=== PATIENT | male | born 1940 | race Caucasian/White ===

== ENCOUNTER 2017-10-19 00:13 | Inpatient (IN) | payer MEDICARE, OTHER ==
[2017-10-19] MEDS ORDERED: Morphine 2 MG/ML SYRINGE ONE (00:25)
[2017-10-19] MEDS ORDERED: Ondansetron HCl/PF 4 MG/2 ML Vial ONE ×2 (00:29→07:07)
[2017-10-19] MEDS ORDERED: Multivitamins, Adult 10 ML, Thiamine HCl 100 MG, Folic Acid 1 MG in Dextrose 5 %-0.45 %... IV SCH ×4 (00:45)
[2017-10-19] MEDS ORDERED: Cyclobenzaprine 10 MG TAB PO PRN (02:08)
[2017-10-19] MEDS ORDERED: Dextrose 50% Abboject 50 ML SYRINGE SLOW IVP PRN (02:08)
[2017-10-19] MEDS ORDERED: Ondansetron HCl/PF 4 MG/2 ML Vial IVP PRN ×3 (02:08→13:10)
[2017-10-19] MEDS ORDERED: Dextrose 5% in Water 1,000 ML IV PRN (02:08)
[2017-10-19] MEDS ORDERED: hydrALAZINE 20 MG/ML VIAL SLOW IVP PRN (02:08)
[2017-10-19] MEDS ORDERED: Morphine 2 MG/ML SYRINGE IVP PRN (02:08)
[2017-10-19] MEDS ORDERED: Acetaminophen 1,000 MG in Premix Bag 1 BAG IVPB SCH (02:08)
[2017-10-19] MEDS ORDERED: Ketorolac Tromethamine 30 MG/ML VIAL IVP SCH (02:08)
[2017-10-19] MEDS ORDERED: Ondansetron ODT 4 MG TAB SL PRN (02:08)
[2017-10-19] MEDS ORDERED: Ondansetron ODT 4 MG TAB PO PRN (02:08)
[2017-10-19] MEDS ORDERED: D5 1/2 NS w/20 mEq KCL 1,000 ML IV SCH (02:15)
[2017-10-19] MEDS: Sodium Chloride 0.9% 1,000 ML IV SCH ×3 (02:31→23:30)
[2017-10-19 02:45] VITALS: BMI 16.9
--- NOTE | 2017-10-19 03:01 | HP ---
DATE OF ADMISSION: 10/19/2017 REQUESTING PHYSICIAN: Dr. Castro. ATTENDING SURGEON: Dr. Agosto. CONSULTATIONS: Neurosurgery, Dr. Lomax; orthopedics, Dr. Avelar. HISTORY OF PRESENT ILLNESS: Patient is a 77-year-old man who was reportedly consuming alcohol and was walking to a friend's truck when he fell, landing on his left side. Patient had immediate pain to his neck and left hip. He was taken by EMS to the emergency department in [facility], where he underwent evaluation and examination was noted to have a type 2 C2 odontoid fracture and a left femoral neck fracture, at which time he was transferred to our facility for evaluation, admission for his orthopedic and neurosurgical problems. Of note, [facility] and they were contacted [facility] and they denied the transfer, so he was transferred to us. Patient denies chest pain, shortness of breath, dizziness or any syncopal symptoms. ALLERGIES: None. CURRENT MEDICATIONS: Patient states that he is on a medication for something, but is unsure of why he takes it or what it is for. PAST MEDICAL HISTORY: Hypertension and severe vision loss due to cataracts. PAST SURGICAL HISTORY: Cataract surgery, appendectomy. FAMILY MEDICAL HISTORY: Hypertension. SOCIAL HISTORY: Patient drinks what he reports is 3-4 beers per day, smokes approximately 1 pack of cigarettes per day. Denies drug use. Patient is a retired anderson. REVIEW OF SYSTEMS: Ten-point review of systems negative, unless otherwise stated. PHYSICAL EXAMINATION: VITAL SIGNS: Blood pressure 125/70, heart rate 84, respirations 16, oxygen saturation is 97% on room air, temperature is 97.9. GENERAL: Patient is lying comfortably in the ER bed. He is awake, alert, and oriented x3. Rain coma scale is 15. HEENT: Head is normocephalic, atraumatic. Eyes: Pupils are sluggish, unable to evaluate extraocular motion due to the patient's severe vision loss, which does not allow him to track my finger. Ears are atraumatic without discharge. Nose is atraumatic without discharge. Oropharynx is clear. NECK: Immobilized and in an [place] collar. Trachea is midline. No JVD. CHEST: Chest shows scant rhonchi with moderate inspiratory and expiratory effort. HEART: Regular rate and rhythm. ABDOMEN: Soft, flat, nontender with active bowel sounds. Pelvis is stable with tenderness to palpation to the left hip consistent with his fracture. EXTREMITIES: Neurovascularly intact x4. BACK: Atraumatic and nontender. LABORATORY DATA: White blood cell count 12.8, hemoglobin 14.6, hematocrit 42.7 , platelets 159. Sodium 129, potassium 4.2, chloride 98, CO2 of 20, BUN 15, creatinine 1.08, glucose 89. LFTs are unremarkable. CK 216, CK-MB 2.0, troponin less than 0.010. Urine drug screen is unremarkable. Blood alcohol 154. INR 1.0. RADIOGRAPHIC REPORTS: AP chest x-ray shows no acute cardiopulmonary process. Two views of the left hip show mildly displaced and angulated left subcapital femoral neck fracture. CT of the C-spine without contrast shows a nondisplaced type 2 odontoid fracture and prominent multilevel degenerative changes. CT of the brain without contrast shows no acute intracranial abnormalities and multiple chronic changes. ASSESSMENT AND PLAN: 1. Status post ground level fall. 2. Type 2 odontoid fracture. 3. Left femoral neck fracture. 4. Hyponatremia. 5. Alcohol intoxication. PLAN: We will be to admit the patient to the surgical floor, make the patient n.p.o., IV hydration, pain control, pulmonary toilet, gastritis, and mechanical DVT prophylaxis. The patient will remain in an [place] collar per Neurosurgery's recommendations and will undergo orthopedic surgical intervention for his hip fracture, later today. The evaluation, examination, laboratory and radiographic findings will be discussed with Dr. Agosto after this dictation. [facility]
[2017-10-19 05:13] LABS: #Eosinphils 0.2 thou/uL (0.0-0.7); #Lymphocytes 1.9 thou/uL (1.20-3.40); #Monocytes 0.9 thou/uL (0.11-0.59); #Neutrophils 9.2 thou/uL (1.40-6.50); %Basophils 0.1 % (0.0-1.0); %Eosinophils 1.7 % (0.0-10.0); %Lymphocytes 15.7 % (21.0-51.0); %Monocytes 7.5 % (0.0-10.0); %Neutrophils 75.1 % (42.0-75.0); Hemoglobin 14.4 g/dL (14.0-18.0); Mean Corpuscular HGB CONC 34.1 g/dL (32.0-36.0); Mean Corpuscular Hemoglobin 32.1 pg (27.0-31.0); Mean Corpuscular Volume 94.2 fl (80.0-94.0); Mean Platelet Volume 7.6 fL (7.4-10.4); Platelet Count 162 thou/uL (130-400); RBC Distribution Width 12.7 % (11.5-14.5); Red Blood Cell (RBC) Count 4.47 mill/uL (4.70-6.10); White Blood Cell (WBC) Count 12.3 thou/uL (4.8-10.8)
[2017-10-19 05:29] LABS: Anion Gap 10 mmol/L (10-20); BUN (Urea Nitrogen) 13 mg/dL (8.4-25.7); Calc. Creatinine Clearance 51 mL/min (70-130); Calcium 8.3 mg/dL (7.8-10.44); Carbon Dioxide 23 mmol/L (23-31); Chloride 99 mmol/L (98-107); Estimated GFR-MDRD 75; Glucose 92 mg/dL (83-110); Magnesium 2.1 mg/dL (1.6-2.6); Phosphorus 2.7 mg/dL (2.3-4.7); Potassium 4.5 mmol/L (3.5-5.1); Sodium 127 mmol/L (136-145)
[2017-10-19] MEDS: Acetaminophen 1,000 MG in Premix Bag 1 BAG IVPB SCH ×3 (05:36→18:00)
[2017-10-19] MEDS: Ketorolac Tromethamine 30 MG/ML VIAL IVP SCH ×3 (05:38→18:00)
[2017-10-19] MEDS ORDERED: ePHEDrine/0.9% NaCl/PF SYRINGE 50 mg/10 ml ONE (07:07)
[2017-10-19] MEDS ORDERED: Succinylcholine Chloride 20 MG/ML 10 ml SYRINGE FS ONE (07:07)
[2017-10-19] MEDS ORDERED: Lidocaine 1% PF 5 ML VIAL ONE (07:07)
[2017-10-19] MEDS ORDERED: Ketorolac Tromethamine 30 MG/ML VIAL ONE (07:07)
[2017-10-19] MEDS ORDERED: Glycopyrrolate 0.2 MG/ML 5 ML SYRINGE ONE (07:07)
[2017-10-19] MEDS ORDERED: CEFAZOLIN/Water 2 GM/20 ML SYRINGE SLOW IVP SCH ×2 (08:30→18:00)
[2017-10-19] MEDS ORDERED: Prevnar 13-Val Conj/PF 0.5 ML SYRINGE IM ONE (09:00)
--- NOTE | 2017-10-19 10:03 | CON ---
DATE OF CONSULTATION: 10/19/2017 REQUESTING PHYSICIAN: Dr. Agosto. CONSULTING PHYSICIAN: Dr. Ricky Avelar. BRIEF HISTORY: This is a 77-year-old male, who fell yesterday when he was consuming alcoho l and was walking to a friend's truck and stumbled. The patient was found to have a type 2 C2 odonto id fracture as well as a left femoral neck fracture. He is being seen by Neurosurgery for the C2 fra cture. We have been consulted for the left hip fracture. The patient denies any significant pain at this time. He denies any other orthopedic injuries. He has been admitted to the Trauma Service and is n.p.o. at this time in preparation for surgery today. ALLERGIES: None. CURRENT MEDICATIONS: Patient states he was prescribed something from [place], but does not know the name of the medication. PAST MEDICAL HISTORY: Cataracts and hypertension. PAST SURGICAL HISTORY: Appendectomy and cataracts. SOCIAL HISTORY: Patient states that he drinks approximately 4-6 beers a day, smokes approximately 1- pack of cigarettes a day. Denies illicit drug use. PHYSICAL EXAMINATION: VITAL SIGNS: Temperature of 98.0, pulse of 86, respirations of 18, blood pressure of 153/88. GENERAL: The patient is awake and alert. He is oriented x3. He is in no acute distress. He is lyi ng supine on the hospital bed on tower 3. HEENT: Normocephalic, atraumatic. NECK: Immobilized in an [place] collar. CHEST: Shows nonlabored breathing. EXTREMITIES: Examination of the left hip shows mild tenderness to palpation along the left hip consi stent with his fracture. His leg does appear shortened and slightly externally rotated. Distal neur ovascular status is intact. Distal pulses 2+. IMAGING: Radiographic studies of the left hip including 2 views from [facility] show evidence of a mildly displaced and angulated left subcapital femoral neck fracture. ASSESSMENT AND PLAN: Left femoral neck fracture. The patient will be taken to surgery today with Dr Chad Avelar for a left hip hemiarthroplasty. Risks, benefits, and alternatives of surgery were discu ssed at length with the patient today. He verbalized understanding. Patient is already n.p.o. We w ill consent for surgery. We will continue adequate pain control and deep vein thrombosis prophylaxis per trauma team.
[2017-10-19] MEDS ORDERED: CEFAZOLIN/Water 2 GM/20 ML SYRINGE ONE (10:12)
[2017-10-19] MEDS: Folic Acid 1 MG TAB PO SCH (10:53)
[2017-10-19] MEDS: Famotidine 20 MG TAB PO SCH ×2 (10:53→20:56)
[2017-10-19] MEDS: Multivit, Therapeutic 1 TAB PO SCH (10:53)
[2017-10-19] MEDS: Oxazepam 10 MG CAP PO SCH ×2 (10:53→16:43)
[2017-10-19] MEDS ORDERED: Neomycin-Polymyxin 1 ML AMP ONE (11:21)
[2017-10-19] MEDS ORDERED: Fentanyl 250 MCG/5 ML VIAL ONE (11:23)
[2017-10-19] MEDS ORDERED: Midazolam HCl 2 mg/2 ml Vial ONE (11:24)
[2017-10-19] MEDS ORDERED: HYDROmorphone 0.5 MG/0.5 ML SYRINGE ONE (12:30)
[2017-10-19] MEDS ORDERED: Promethazine HCl 25 MG/ML VIAL SLOW IVP PRN (13:10)
[2017-10-19] MEDS ORDERED: Promethazine HCl 25 MG/ML VIAL IM PRN (13:10)
--- NOTE | 2017-10-19 13:58 | RAD ---
RADIOGRAPH PELVIS 1 VIEW: HISTORY: A 77-year-old male status post hemiarthroplasty of left hip. COMPARISON: Left hip radiograph of 10/18/17. FINDINGS: The left femoral head and neck have been surgically resected during the interval, and replaced with m etallic hardware, with distal portion of femoral stem outside of the field of view. There are new le ft lateral skin rohan and left lateral soft tissue swelling with subcutaneous emphysema indicating very recent postsurgical status. The rest of the pelvis appears to be intact. IMPRESSION: Immediately status post left hip replacement arthroplasty. POS: [facility]
--- NOTE | 2017-10-19 14:40 | CON ---
DATE OF CONSULTATION: 10/19/2017 ATTENDING PHYSICIAN: Dr. Florin Lomax. HISTORY OF PRESENT ILLNESS: The patient is a 77-year-old male with a past medical history of hypertension, who presented to the emergency department last night after a mechanical fall while simona sanhcez was walking to his friend's truck. The patient does admit to ETOH use at this time. He was taken to the emergency department by EMS where he was evaluated with CT of the head and neck, which was not able for a type 2 odontoid fracture, which is nondisplaced. The patient was also found to have a lef t femoral neck fracture. He was admitted to the Trauma Service and Orthopedics was also consulted. I am seeing the patient at the bedside in his room. He does have pain to the left lower extremity at the location of the fracture, but denies any other radicular leg pain or extremity pain, numbness, t ingling, or weakness. He does complain of some neck discomfort. He is currently wearing an [place] co llar. PAST MEDICAL HISTORY: Hypertension and cataracts with chronic vision loss. PAST SURGICAL HISTORY: Cataract surgery and appendectomy. ALLERGIES: Patient has no known drug allergies. SOCIAL HISTORY: The patient drinks approximately 3-4 beers per day. He smokes 1-pack cigarettes per day. He denies any drug use. He is a retired anderson. REVIEW OF SYSTEMS: Per HPI. PHYSICAL EXAMINATION: VITAL SIGNS: Temperature 97.8, heart rate 73, respirations rate 18. The patient is 97% on room air, blood pressure 119/74. On exam, patient has a GCS of 15. GENERAL: He is comfortable, in no acute distress. HEENT: Normocephalic, atraumatic. EYES: PERRLA. Extraocular movements are intact. Sclerae white. ENT: Oral mucosa is pink, intact, moist. Patient has normal voice. NECK: Patient is currently immobilized in an [place] collar. CARDIOVASCULAR: Regular rate and rhythm. RESPIRATORY: The patient has symmetric chest expansion. He is breathing comfortable. MUSCULOSKELETAL: The patient has pain over the left hip and in the left lower extremity. NEUROLOGIC: A and O x4. GCS 15. No focal motor neurologic deficits are appreciated. ASSESSMENT AND PLAN: Neurosurgery service was consulted for acute onset C2 odontoid fracture after m echanical fall. This appears to be nondisplaced and he has been placed in an [place] collar. We will recommend that he wear the [place] collar at all times and he will be provided a [place] collar fo r showering. We will plan to follow up with the patient in 4 weeks for repeat set of x-rays. Please reach out to the Neurosurgery Service for additional questions or concerns.
--- NOTE | 2017-10-19 15:09 | RAD ---
SINGLE LATERAL LEFT HIP: Indication: Hemiarthroplasty. Comparison: 10-18-17 FINDINGS: There is a new left hip endoprosthesis is in place. The prosthetic component projects in the expected position. IMPRESSION: Post-operative left hip. POS: [facility]
--- NOTE | 2017-10-19 15:38 | OP ---
DATE OF PROCEDURE: 10/19/2017 OPERATION: Left hip hemiarthroplasty, bipolar. PREOPERATIVE DIAGNOSIS: Left femoral neck fracture. POSTOPERATIVE DIAGNOSIS: Left femoral neck fracture. COMPLICATIONS: None. ESTIMATED BLOOD LOSS: 100 mL. SURGEON: Ricky Avelar M.D. SENIOR SQL DATABASE DEVELOPER: Karis Lantigua PA-C IMPLANTS: DePuy basic press-fit stem size 6 [place], size 52 bipolar shell with a +5 femoral head. INDICATIONS: Mr. Jones is a 77-year-old male who fell. He fractured the left femoral neck. He was indicated for hemiarthroplasty of the hip to restore alignment and promote healing. Goal of surgery is to promote early mobilization and prevent complications of prolonged bed rest. He is aware of ri sks which include wound complication, infection, dislocation, nerve or vascular injury, DVT, PE, and others. DESCRIPTION OF PROCEDURE: Mr. Jones was identified in the preoperative holding area. His correct e xtremity was marked. He was carried to the operating room. He was positioned supine. General anest hesia was induced. He was converted to the lateral decubitus position. Intravenous antibiotics were given. We prepped and draped the left lower extremity. At this point, a posterior approach to the hip was created. We dissected down through the subcutaneous tissues to the fascia level. The fascia was incised. We then exposed the short external rotators of the hip. These were subperiosteally di vided from the proximal femur. This allowed exposure of the underlying joint capsule. We performed a capsulotomy. At this point, the femoral head was removed. We performed a new osteotomy of the fem oral neck. We then prepared the femur. We entered the intramedullary canal of the femur and reamed up to a size 6. We then broached to a size 6. This gave a good fit. We trialed off of the broach. A +5 femoral head was appropriate for stability throughout a full range of motion and leg length was equal. We removed our trial components. We thoroughly irrigated with copious lavage. We then impa cted our final bipolar hip arthroplasty and reduced the hip. At this point, after thorough irrigation, we closed the short external rotator muscle and the capsule with a #5 Ethibond suture. This was brought through a drill hole in the trochanter. We then closed with #1 Vicryl suture, 2-0 Vicryl suture and rohan for the skin. A sterile dressing was applied. The patient was taken to the recovery room at this point in good condition.
--- NOTE | 2017-10-19 17:38 | PRG ---
DATE OF SERVICE: 10/19/2017 ATTENDING PHYSICIAN: Dr. Rachael Agosto. SUBJECTIVE: The patient is a 77-year-old male who suffered a C2 odontoid fracture as well as a left hip fracture yesterday after suffering a ground-level fall. His odontoid fracture was determined to be nonoperative. His hip fracture is scheduled to be operated on today. Currently, the patient voic es no complaints this morning as his pain is well controlled. OBJECTIVE: VITAL SIGNS: BP 114/72, temperature 97.3, pulse 91, respirations 16, O2 sat 98% on room air. GENERAL: The patient is an elderly adult male. He is in a C-collar. He does not appear to be in an y acute distress. RESPIRATORY: The patient has mild expiratory wheezes bilaterally. CARDIOVASCULAR: He has a regular rate and rhythm. No murmurs, gallops or rubs. ABDOMEN: Soft, flat, and nondistended. He has normal bowel sounds. EXTREMITIES: He is neurovascularly intact x4. NEUROLOGIC: His GCS is 15 this morning. LABORATORY DATA: Hematology, WBC is 12.3, hemoglobin 14.4, hematocrit 42.1, platelets 162. Chemistr y: Sodium 127, potassium 4.5, chloride 99, bicarbonate 23, BUN 13, creatinine 0.98, glucose 92. IMAGING: There are no images to review today. ASSESSMENT: 1. Status post ground-level fall. 2. Type 2 odontoid fracture. 3. Left femoral neck fracture status post left hip hemiarthroplasty. 4. Hyponatremia. 5. Alcohol use disorder. PLAN: 1. Continue pain control, gastritis prophylaxis and mechanical thrombosis prophylaxis. 2. The patient will remain in a cervical collar per Neurosurgery recommendations. 3. Physical therapy and occupational Therapy will need to work with the patient for mobilization. T he patient will likely need rehabilitation versus senior living. This patient was discussed with Dr. Porfirio Donahue, who agrees with the assessment and plan.
[2017-10-19] MEDS ORDERED: traMADol HCl 50 MG TAB PO PRN (18:17)
[2017-10-19] MEDS ORDERED: Sodium Chloride 0.9% 500 ML IV SCH (18:30)
[2017-10-19] MEDS: CEFAZOLIN/Water 2 GM/20 ML SYRINGE SLOW IVP SCH (20:56)
[2017-10-19] MEDS: Ibuprofen 600 MG TAB PO SCH (21:02)
[2017-10-19] MEDS: Sodium Chloride 0.9% 500 ML IV SCH (23:30)
[2017-10-20] MEDS: Acetaminophen 500 MG TAB PO SCH ×4 (00:35→18:03)
[2017-10-20] MEDS: traMADol HCl 50 MG TAB PO SCH ×4 (00:36→18:04)
[2017-10-20] MEDS: Oxazepam 10 MG CAP PO SCH ×3 (00:42→16:22)
[2017-10-20] MEDS: Sodium Chloride 0.9% 500 ML IV SCH (01:15)
[2017-10-20] MEDS ORDERED: Hydrocortisone Sod Succ/PF 100 mg/2 ml Vial IVP SCH ×2 (01:30→10:00)
[2017-10-20] MEDS: CEFAZOLIN/Water 2 GM/20 ML SYRINGE SLOW IVP SCH (04:15)
[2017-10-20 05:36] LABS: #Eosinphils 0.2 thou/uL (0.0-0.7); #Lymphocytes 0.8 thou/uL (1.20-3.40); #Monocytes 0.6 thou/uL (0.11-0.59); #Neutrophils 10.3 thou/uL (1.40-6.50); %Eosinophils 1.3 % (0.0-10.0); %Lymphocytes 6.6 % (21.0-51.0); %Monocytes 4.8 % (0.0-10.0); %Neutrophils 87.4 % (42.0-75.0); Hemoglobin 11.3 g/dL (14.0-18.0); Mean Corpuscular HGB CONC 32.7 g/dL (32.0-36.0); Mean Corpuscular Hemoglobin 31.5 pg (27.0-31.0); Mean Corpuscular Volume 96.3 fl (80.0-94.0); Mean Platelet Volume 8.1 fL (7.4-10.4); Platelet Count 135 thou/uL (130-400); RBC Distribution Width 12.8 % (11.5-14.5); Red Blood Cell (RBC) Count 3.59 mill/uL (4.70-6.10); White Blood Cell (WBC) Count 11.8 thou/uL (4.8-10.8)
[2017-10-20 06:06] LABS: Anion Gap 8 mmol/L (10-20); BUN (Urea Nitrogen) 18 mg/dL (8.4-25.7); Calc. Creatinine Clearance 42 mL/min (70-130); Calcium 7.4 mg/dL (7.8-10.44); Carbon Dioxide 21 mmol/L (23-31); Chloride 106 mmol/L (98-107); Estimated GFR-MDRD 60; Glucose 102 mg/dL (83-110); Magnesium 1.9 mg/dL (1.6-2.6); Phosphorus 2.6 mg/dL (2.3-4.7); Potassium 4.1 mmol/L (3.5-5.1); Sodium 131 mmol/L (136-145)
[2017-10-20] MEDS: Ibuprofen 600 MG TAB PO SCH ×3 (07:05→20:46)
[2017-10-20] MEDS: Sodium Chloride 0.9% 1,000 ML IV SCH ×2 (07:05→22:25)
[2017-10-20] MEDS: Enoxaparin Sodium 40 MG/0.4 ML SYRINGE SC SCH (08:29)
[2017-10-20] MEDS: Folic Acid 1 MG TAB PO SCH (08:30)
[2017-10-20] MEDS: Multivit, Therapeutic 1 TAB PO SCH (08:30)
[2017-10-20] MEDS: Famotidine 20 MG TAB PO SCH ×2 (08:30→20:46)
[2017-10-20] MEDS: Hydrocortisone Sod Succ/PF 100 mg/2 ml Vial IVP SCH ×2 (10:30→18:13)
[2017-10-20] MEDS: Bisacodyl 10 MG SUPP PR SCH (10:30)
--- NOTE | 2017-10-20 17:19 | PRG ---
DATE OF SERVICE: 10/20/2017 ATTENDING PHYSICIAN: Porfirio Donahue DO SUBJECTIVE: The patient is a 77-year-old male who suffered a C2 odontoid fracture as well as a left hip fracture secondary to ground level fall. His odontoid fracture is nonoperative. He is now posto p day #1, status post left hip hemiarthroplasty. Currently, the patient is stable on the floor and v oices no complaints this morning. OBJECTIVE: VITAL SIGNS: BP 138/77, pulse 85, temperature 98.1, respirations 20, O2 saturation 97% on room air. GENERAL APPEARANCE: The patient is an elderly adult male. He is in a C-collar. He does not appear to be in any acute distress. RESPIRATORY: The patient has mild expiratory wheezes bilaterally. CARDIOVASCULAR: He has a regular rate and rhythm. No murmurs, gallops, or rubs. ABDOMEN: Soft, flat, nondistended. He has normal bowel sounds. EXTREMITIES: He is neurovascularly intact x4. NEUROLOGIC: His GCS is 15 this morning. He has no focal deficits. LABORATORY DATA: Hematology: WBC is 11.8, hemoglobin 11.3, hematocrit 34.6, platelets 135. Nuclear Control Operator ry: Sodium 131, potassium 4.1, chloride 106, bicarbonate 21, BUN 18, creatinine 1.18, glucose 102, c alcium 7.4. Serum cortisol 8.5. IMAGING: There are no images to review today. ASSESSMENT: 1. Status post ground level fall. 2. Type 2 odontoid fracture. 3. Left hip fracture, status post left hip hemiarthroplasty. 4. Hyponatremia. 5. Alcohol use disorder. 6. Hypotension. PLAN: 1. Continue pain control, gastritis prophylaxis, mechanical thrombosis prophylaxis. 2. The patient will remain in cervical collar per Neurosurgery recommendations. 3. PT and OT for mobilization. 4. The patient was given 100 mg of hydrocortisone overnight and started on 25 mg q.8 hours for low b lood pressure. As of this exam, his blood pressure has responded and is now in a fairly normal range . We will continue to monitor. This patient was seen and examined along with Dr. Porfirio Donahue on rounds, who agrees with the assess ment and plan.
[2017-10-20] MEDS: Tamsulosin HCl 0.4 MG CAP PO SCH (20:46)
[2017-10-20] MEDS: Senokot S 8.6-50 MG TAB PO SCH (20:46)
[2017-10-21] MEDS: Oxazepam 10 MG CAP PO SCH ×3 (00:39→17:34)
[2017-10-21] MEDS: Hydrocortisone Sod Succ/PF 100 mg/2 ml Vial IVP SCH ×3 (00:48→17:29)
[2017-10-21] MEDS: traMADol HCl 50 MG TAB PO SCH ×4 (00:49→17:29)
[2017-10-21] MEDS: Acetaminophen 500 MG TAB PO SCH ×4 (00:49→17:29)
[2017-10-21] MEDS: Ibuprofen 600 MG TAB PO SCH ×3 (06:18→21:06)
[2017-10-21] MEDS: Sodium Chloride 0.9% 1,000 ML IV SCH ×2 (08:10→21:07)
[2017-10-21] MEDS: Enoxaparin Sodium 40 MG/0.4 ML SYRINGE SC SCH (08:12)
[2017-10-21] MEDS: Multivit, Therapeutic 1 TAB PO SCH (08:12)
[2017-10-21] MEDS: Bisacodyl 10 MG SUPP PR SCH (08:12)
[2017-10-21] MEDS: Senokot S 8.6-50 MG TAB PO SCH ×2 (08:12→21:06)
[2017-10-21] MEDS: Folic Acid 1 MG TAB PO SCH (08:12)
[2017-10-21] MEDS: Famotidine 20 MG TAB PO SCH ×2 (08:12→21:06)
--- NOTE | 2017-10-21 19:37 | PRG ---
DATE OF SERVICE: 10/21/2017 ATTENDING PHYSICIAN: Dr. Porfirio Donahue. SUBJECTIVE: A 77-year-old male who had a ground-level fall with a subsequent C2 fracture. This has been managed in a cervical collar. He was started on hydrocortisone postoperatively for adrenal insufficiency. He has been stable on the floor. He is postoperative day #2 status post left hip hemiarthroplasty. He states the pain has been well controlled. He is currently pending placement in a prison facility. OBJECTIVE: VITAL SIGNS: Temperature 97.8, pulse 87, respirations 16, O2 sat 95% on room air, blood pressure 101/61. GENERAL: Elderly male sitting in bed in no acute distress. C-collar in place. CARDIOVASCULAR: Regular rate and rhythm. RESPIRATORY: No respiratory distress. The patient is pulling 1500 mL on incentive spirometry. ABDOMEN: Soft, flat, nondistended. EXTREMITIES: Neurovascular intact x4. Moves all extremities well. Cap refill brisk. NEUROLOGIC: GCS awake, alert, oriented x3. No focal weakness. ASSESSMENT: 1. Status post ground-level fall. 2. Type 2 odontoid fracture, managed in cervical collar. 3. Left hip fracture status post left hip hemiarthroplasty. 4. Alcohol use disorder, present on admission. 5. Adrenal insufficiency. PLAN: 1. Continue mobilizing with physical and occupational therapy. 2. Continue hydrocortisone for adrenal insufficiency. 3. Continue Serax and monitor for alcohol withdrawal. 4. Continue cervical collar per Neurosurgery. 5. Continue Flomax. Flomax started one day ago. 6. Hyponatremia previously noted appeared to be improving. We will monitor labs in a.m. The patient was seen and examined with Dr. Donahue who agrees with the assessment and plan. [facility]
[2017-10-21] MEDS: Tamsulosin HCl 0.4 MG CAP PO SCH (21:06)
[2017-10-22] MEDS: Acetaminophen 500 MG TAB PO SCH ×4 (00:50→16:25)
[2017-10-22] MEDS: traMADol HCl 50 MG TAB PO SCH ×4 (00:50→16:26)
[2017-10-22] MEDS: Oxazepam 10 MG CAP PO SCH ×3 (01:07→16:26)
[2017-10-22] MEDS: Hydrocortisone Sod Succ/PF 100 mg/2 ml Vial IVP SCH (01:10)
[2017-10-22 05:41] LABS: Anion Gap 8 mmol/L (10-20); BUN (Urea Nitrogen) 30 mg/dL (8.4-25.7); Calc. Creatinine Clearance 43 mL/min (70-130); Calcium 8.5 mg/dL (7.8-10.44); Carbon Dioxide 25 mmol/L (23-31); Chloride 108 mmol/L (98-107); Estimated GFR-MDRD 61; Glucose 109 mg/dL (83-110); Magnesium 2.4 mg/dL (1.6-2.6); Phosphorus 2.7 mg/dL (2.3-4.7); Potassium 4.6 mmol/L (3.5-5.1); Sodium 136 mmol/L (136-145)
[2017-10-22] MEDS: Ibuprofen 600 MG TAB PO SCH ×3 (06:33→22:19)
[2017-10-22] MEDS: Folic Acid 1 MG TAB PO SCH (08:17)
[2017-10-22] MEDS: Multivit, Therapeutic 1 TAB PO SCH (08:17)
[2017-10-22] MEDS: Senokot S 8.6-50 MG TAB PO SCH ×2 (08:17→22:19)
[2017-10-22] MEDS: Enoxaparin Sodium 40 MG/0.4 ML SYRINGE SC SCH (08:18)
[2017-10-22] MEDS: Famotidine 20 MG TAB PO SCH (08:18)
[2017-10-22] MEDS: Bisacodyl 10 MG SUPP PR SCH (08:24)
--- NOTE | 2017-10-22 11:04 | PRG ---
DATE OF SERVICE: 10/22/2017 ATTENDING PHYSICIAN: Pofririo Donahue D.O. SUBJECTIVE: The patient is a 77-year-old male who had a ground level fall with a C2 fracture. This is being managed in a cervical collar. He has been on hydrocortisone postoperatively for adrenal ins ufficiency. He has maintained adequate blood pressure and vital signs. His pain is well controlled and he is pulling approximately 1500 mL on incentive spirometer. He is currently pending placement i a assisted facility. OBJECTIVE: VITAL SIGNS: Temperature 97.6, pulse 89, respirations 18, O2 sat 97% on room air, and blood pressure 126/68. GENERAL: Elderly male sitting in bed in no acute distress. C-collar in place. CARDIOVASCULAR: Regular rate and rhythm. Heart sounds normal. RESPIRATORY: No respiratory distress. A 1500 mL incentive spirometry volume. ABDOMEN: Soft, flat, nontender, and nondistended. EXTREMITIES: Neurovascular intact x4. Moves all extremities well. Cap refill brisk. NEUROLOGIC: GCS of 15. Awake, alert, and oriented x3. No focal weakness. ASSESSMENT: 1. Status post ground level fall. 2. Type 2 odontoid fracture, managed in cervical collar. 3. Left hip fracture status post left hip hemiarthroplasty. 4. Alcohol use disorder, present on admission. 5. Adrenal insufficiency, improving. PLAN: 1. Continue mobilizing with physical and occupational therapy. 2. We will discontinue the hydrocortisone at this point. 3. Begin Serax taper. 4. Continue cervical collar per Neurosurgery. 5. Continue Flomax. 6. Hyponatremia has resolved. Labs this morning show sodium of 136. The patient was seen and examined with Dr. Donahue who agrees with the assessment and plan.
[2017-10-22] MEDS: Tamsulosin HCl 0.4 MG CAP PO SCH (22:19)
[2017-10-23] MEDS: traMADol HCl 50 MG TAB PO SCH ×5 (00:57→23:44)
[2017-10-23] MEDS: Acetaminophen 500 MG TAB PO SCH ×5 (00:57→23:43)
[2017-10-23] MEDS: Oxazepam 10 MG CAP PO SCH ×4 (00:58→23:44)
[2017-10-23] MEDS: Ibuprofen 600 MG TAB PO SCH ×3 (06:12→22:43)
[2017-10-23] MEDS: Enoxaparin Sodium 40 MG/0.4 ML SYRINGE SC SCH (09:04)
[2017-10-23] MEDS: Folic Acid 1 MG TAB PO SCH (09:05)
[2017-10-23] MEDS: Famotidine 20 MG TAB PO SCH (09:05)
[2017-10-23] MEDS: Senokot S 8.6-50 MG TAB PO SCH ×2 (09:05→20:34)
[2017-10-23] MEDS: Multivit, Therapeutic 1 TAB PO SCH (09:05)
[2017-10-23] MEDS: Bisacodyl 10 MG SUPP PR SCH (09:08)
--- NOTE | 2017-10-23 20:16 | PRG ---
DATE OF SERVICE: 10/23/2017 ATTENDING PHYSICIAN: Dr. Porfirio Donahue. SUBJECTIVE: The patient is a 77-year-old male who had a ground level fall with a C2 fracture. This is being managed in a cervical collar. The patient is mostly noncompliant with keeping cervical collar on, even though he is frequently reminded, and the cervical collar continues to be replaced. His pain is well controlled. He is putting approximately 1500 mL on incentive spirometer. He is currently pending insurance approval for placement in a rehab facility. OBJECTIVE: VITAL SIGNS: Temperature 98.3, pulse 81, respirations 16, O2 sat 98% on room air, blood pressure 129/80. HEENT: Atraumatic, normocephalic. Cervical collar in place. GENERAL: Elderly male, sitting in bed, in no acute distress. CARDIOVASCULAR: Regular rate and rhythm. Heart sounds normal. RESPIRATORY: No respiratory distress. 1500 mL incentive spirometer volume. ABDOMEN: Soft, flat, nontender, nondistended. EXTREMITIES: Neurovascularly intact x4. Moves all extremities well. Cap refill brisk. NEUROLOGIC: GCS is 15. Awake, alert, and oriented x3. No focal weakness. ASSESSMENT: 1. Status post ground level fall. 2. Type 2 odontoid fracture, managed in a cervical collar. 3. Left hip fracture, status post left hip hemiarthroplasty. 4. Alcohol use disorder, present on admission. 5. Adrenal insufficiency, resolved. PLAN: 1. Continue mobilizing with physical and occupational therapy. 2. Continue Serax taper. 3. Continue cervical collar per Neurosurgery. Encouraged the patient to be compliant. 4. Continue Flomax. 5. Monitor labs and treat as appropriate. This patient was seen and examined along with Dr. Donahue who agrees with this assessment and plan. [facility]
[2017-10-23] MEDS: Tamsulosin HCl 0.4 MG CAP PO SCH (20:34)
[2017-10-24] MEDS: Acetaminophen 500 MG TAB PO SCH (05:35)
[2017-10-24] MEDS: traMADol HCl 50 MG TAB PO SCH (05:36)
[2017-10-24] MEDS: Ibuprofen 600 MG TAB PO SCH (05:36)
[2017-10-24] MEDS: Senokot S 8.6-50 MG TAB PO SCH (09:25)
[2017-10-24] MEDS: Multivit, Therapeutic 1 TAB PO SCH (09:25)
[2017-10-24] MEDS: Famotidine 20 MG TAB PO SCH (09:25)
[2017-10-24] MEDS: Bisacodyl 10 MG SUPP PR SCH (09:26)
[2017-10-24] MEDS: Folic Acid 1 MG TAB PO SCH (09:26)
[2017-10-24] MEDS: Enoxaparin Sodium 40 MG/0.4 ML SYRINGE SC SCH (09:26)
[2017-10-24] MEDS: Oxazepam 10 MG CAP PO SCH (09:26)
[2017-10-24 12:08] VITALS: BP 117/73; TEMP 98
== END 2017-10-24 12:55 | disposition home or self-care (01) | DRG 469 ==
LOC: ERS 00:13 → SURG A 00:46
PROVIDERS: ADMIT Surgery; ATTEND Surgery
PROC: 0SRS0JA Replacement of Left Hip Joint, Femoral Surface with Synthetic Substitute, Uncemented, Open Approach (ICD-10-PCS; principal; 2017-10-19)
DX: S12.112A Nondisplaced Type II dens fracture, initial encounter for closed fracture (principal); S72.012A Unspecified intracapsular fracture of left femur, initial encounter for closed fracture; I95.9 Hypotension, unspecified; E87.1 Hypo-osmolality and hyponatremia; E27.40 Unspecified adrenocortical insufficiency; W18.39XA Other fall on same level, initial encounter; I10 Essential (primary) hypertension; H26.9 Unspecified cataract; F17.210 Nicotine dependence, cigarettes, uncomplicated; F10.120 Alcohol abuse with intoxication, uncomplicated; Z91.19 Patient's noncompliance with other medical treatment and regimen
CPT/HCPCS: 36415; 36416; 72170; 80048; 82533; 83735; 84100; 85025; 93005; 96365; 96375; G8978-GP-CK; G8979-GP-CI; G8987-GO-CK; G8988-GO-CI; J0131; J1170; J1650; J1720; J1885; J2001; J2250; J2270; J2405; J3010; J3411; J7042

== ENCOUNTER 2017-12-04 15:14 | Inpatient (IN) | payer MEDICARE ==
--- NOTE | 2017-12-04 16:54 | RAD ---
LEFT FEMUR TWO VIEWS: 12/04/17 HISTORY: Fall. Pain. COMPARISON: None. FINDINGS: There is evidence of arthroplasty change. There is a displaced greater trochanter fracture. Additiona l fractures are not appreciated. Note, fracture lucency appears to extend into the proximal lateral femoral diaphysis. Vascular calcifications are identified. IMPRESSION: Greater trochanter and proximal left humerus fracture. POS: [facility]
--- NOTE | 2017-12-04 17:08 | RAD ---
CHEST ONE VIEW: 12/04/17 COMPARISON: 10/18/17. HISTORY: Fall. FINDINGS: Atherosclerosis of the aorta. Normal cardiac silhouette. Pulmonary vessels and hilum are normal. Cost ophrenic angles are clear. Chronic changes throughout the lung parenchyma. There is bilateral apical pleural thickening and calcification. Extensive vascular calcifications are noted. Diffuse bone demin eralization. No pneumothorax. IMPRESSION: Chronic changes. No acute process. POS: [facility]
[2017-12-04] MEDS ORDERED: Ondansetron ODT 4 MG TAB PO PRN (17:57)
[2017-12-04] MEDS ORDERED: Dextrose 50% Abboject 50 ML SYRINGE SLOW IVP PRN (17:57)
[2017-12-04] MEDS ORDERED: traMADol HCl 50 MG TAB PO PRN (17:57)
[2017-12-04] MEDS ORDERED: Dextrose 5% in Water 1,000 ML IV PRN (17:57)
[2017-12-04] MEDS ORDERED: Acetaminophen 500 MG TAB PO SCH (18:00)
[2017-12-04] MEDS ORDERED: traMADol HCl 50 MG TAB PO SCH (18:00)
[2017-12-04] MEDS ORDERED: Morphine 4 MG/ML VIAL SLOW IVP PRN ×2 (18:15)
[2017-12-04 18:19] LABS: Mean Corpuscular Hemoglobin 31.3 pg (27.0-31.0); Mean Corpuscular Volume 92.3 fl (80.0-94.0); Mean Platelet Volume 7.3 fL (7.4-10.4); Platelet Count 233 thou/uL (130-400); RBC Distribution Width 13.2 % (11.5-14.5); Red Blood Cell (RBC) Count 3.83 mill/uL (4.70-6.10); White Blood Cell (WBC) Count 18.7 thou/uL (4.8-10.8)
[2017-12-04 18:26] LABS: INR-International Normal Ratio 1.1; Prothrombin Time 14.1 SEC (12.0-14.7)
[2017-12-04 18:41] LABS: ALT (SGPT) 10 U/L (8-55); AST (SGOT) 18 U/L (5-34); Albumin 3.6 g/dL (3.4-4.8); Alcohol Less than 10 mg/dL (Less than 10); Alkaline Phosphatase 79 U/L (40-150); Anion Gap 13 mmol/L (10-20); BUN (Urea Nitrogen) 20 mg/dL (8.4-25.7); Bilirubin, Total 0.4 mg/dL (0.2-1.2); Calc. Creatinine Clearance 0 mL/min (70-130); Calcium 8.6 mg/dL (7.8-10.44); Carbon Dioxide 22 mmol/L (23-31); Chloride 99 mmol/L (98-107); Estimated GFR-MDRD 62; Globulin 3.2 g/dL (2.4-3.5); Glucose 123 mg/dL (83-110); Potassium 4.6 mmol/L (3.5-5.1); Protein, Total 6.8 g/dL (5.8-8.1); Sodium 129 mmol/L (136-145)
[2017-12-04 18:43] LABS: Band 10 % (5-11); Lymphocytes 9 % (21-51); MDiff Complete? YES; Monocytes 5 % (0-10); Neutrophil 76 % (42-75); Ovalocytes SLIGHT = 2-5 cells (100X) (0-1/hpf); PLT Morphology Comment Appears Adequate; Polychromasia SLIGHT = 2-3 cells (100X) (0-2/hpf); Vacuoles SLIGHT
--- NOTE | 2017-12-04 18:50 | HP ---
DATE OF ADMISSION: 12/04/2017 ADMITTING PHYSICIAN: Dr. Ruggiero. CONSULTING PHYSICIAN: Dr. Avelar. CHIEF COMPLAINT: Left hip fracture. HISTORY OF PRESENT ILLNESS: Mr. Jones is a 77-year-old male who has a history of chronic alcohol us e and recent history of left hip hemiarthroplasty in 10/2017 who was walking up some steps to his tra iler today when he fell backwards and landed on his left hip. He denies head trauma, loss of conscio usness or other injury. He rates his pain at 4/10. Pain radiates to the knee and relieved by rest. He received pain medication in the ambulance on the way here which improved his pain significantly. The patient was brought by EMS to [facility] where he was evaluated and found to have a left inte rtrochanteric femur fracture. There is also radiographic evidence of damage to the previous hardware . Dr. Ricky Avelar was consulted and Trauma Service is asked to admit. Patient denies head ache, lightheadedness, dizziness, vision changes, nausea, vomiting, chest pain, shortness of breath, numbness or tingling in his extremities. PAST MEDICAL HISTORY: The patient reports past medical history of hypertension. HOME MEDICATIONS: Include vitamin B12, lisinopril, amlodipine, 81 mg of aspirin and tamsulosin. PAST SURGICAL HISTORY: Patient reports remote history of appendectomy. The patient also reports lef t hip hemiarthroplasty in 10/2017. FAMILY HISTORY: Noncontributory for this patient. SOCIAL HISTORY: The patient reports smoking approximately 1 pack a day for the last 50 years. He re ports drinking 3 beers a day. He reports having 2 beers today before the injury. The patient denies other drug use. The patient lives alone in a trailer. PSYCHIATRIC HISTORY: The patient denies any psychiatric history. ALLERGIES: The patient denies any known drug allergies. CODE STATUS: FULL. REVIEW OF SYSTEMS: A 10-point review of systems negative except as mentioned in the HPI. PHYSICAL EXAMINATION: VITAL SIGNS: BP 111/46, pulse 86, respirations 19, temperature 97.8, O2 sat 96% on room air. GENERAL APPEARANCE: Patient is an elderly adult male who appears to be in poor health, but in no acu te distress. He is somewhat disheveled in appearance. HEENT: Normocephalic and atraumatic. EYES: Pupils are equal, round, reactive to light and accommod ation. Extraocular movements are intact. EARS: Atraumatic. NOSE: Nares patent with no blood or d ischarge. MOUTH: His oropharynx is pink and moist. He is partially edentulous. No evidence of tra elmo. NECK: His trachea is midline. He has no cervical spine tenderness. He has no JVD. CHEST: His breath sounds are clear to auscultation bilaterally. He has no chest wall tenderness. CARDIOVASCULAR: He has an irregular rhythm. His rhythm appears to be mostly regular, but does have occasional premature beats. His heart sounds are normal. ABDOMEN: Soft, flat and nontender throughout. EXTREMITIES: Patient is distally neurovascularly intact x4. Range of motion in his left lower extre mity is limited by pain. SKIN: Warm and dry. He has no abrasions or ecchymosis. His toenails are very yellow, thickened and brittle bilaterally. NEUROLOGIC: The patient's GCS is 15. He is alert and oriented x3. He has no focal deficits. LABORATORY DATA: Coag pending. CBC pending. Comprehensive metabolic panel pending. Toxicology pen ding. IMAGING: Chest x-ray significant for atherosclerotic disease of the aorta. He also has chronic chawla ges throughout the lung parenchyma with bilateral apical pleural thickening and calcification. He muñoz s no pneumothorax or acute process. On left femur x-ray, there is evidence of arthroplasty change. There is a displaced greater trochanter fracture. Additional fracture is not appreciated. ASSESSMENT AND PLAN: 1. Status post ground level fall. 2. Left hip fracture at the site of previous hardware. 3. Acute alcohol intoxication. 4. History of chronic alcohol use. 5. Acute traumatic pain. 6. Malnourishment. PLAN: The plan will be to admit the patient to the surgical floor for surgical repair of his left hi p. Dr. Avelar has been consulted and plans to take him to the OR tomorrow. Pending lab results, the patient will have his electrolytes replaced. We will optimize his pain control and make him n.p. o. after midnight. Gastritis and mechanical DVT prophylaxis will be initiated. Chemical DVT prophyl axis will be initiated postoperatively per Orthopedic Surgery recommendations. The patient will also need PT and OT postoperatively and a rehab screen has been placed. Case management will be consulte d for help with discharge planning. This patient was discussed over the phone with Dr. Ruggiero prior to this dictation, who agrees with t he assessment and plan.
[2017-12-04] MEDS: Oxazepam 10 MG CAP PO SCH (21:45)
[2017-12-04] MEDS: Famotidine 20 MG TAB PO SCH (21:45)
[2017-12-04] MEDS: Sodium Chloride 0.9% 1,000 ML IV SCH (21:45)
[2017-12-04] MEDS: traMADol HCl 50 MG TAB PO SCH (22:11)
--- NOTE | 2017-12-05 00:44 | CON ---
DATE OF CONSULTATION: 12/04/2017 CHIEF COMPLAINT: Left hip pain. HISTORY OF PRESENT ILLNESS: Mr. Jones is a 77-year-old male who underwent left hip bipolar hemiarth roplasty in 10/2017. He is approximately one month out from his surgery. He says he was doing quite well. He was back at home and walking using a walker, but not all of the time. He was climbing up steps to his trailer when he lost balance and fell. He landed on his left hip once again. He had im mediate pain in the hip. He was unable to ambulate after this happened. [facility], he has been found to have a periprosthetic left femur fracture involving the greate r trochanter. Orthopedics was consulted to evaluate the patient. He has been admitted to the [facility] by the General Surgery Trauma Service. PAST MEDICAL HISTORY: Hypertension and alcoholism. HOME MEDICATIONS: Include vitamin B12, lisinopril, amlodipine, and aspirin. PAST SURGICAL HISTORY: Recent left hip hemiarthroplasty also history of appendectomy. FAMILY MEDICAL HISTORY: Noncontributory. SOCIAL HISTORY: The patient drinks alcohol daily at least 3 beers a day. He smokes cigarettes as we ll. He denies drug use. PSYCHIATRIC HISTORY: Negative. ALLERGIES: No known drug allergies. REVIEW OF SYSTEMS: Positive for left hip pain. PHYSICAL EXAMINATION: VITAL SIGNS: Stable, afebrile, normotensive. GENERAL: Alert and oriented, no apparent distress. RESPIRATORY: Breathing comfortably. ABDOMEN: Soft, nontender, nondistended. MUSCULOSKELETAL: Patient's left hip has a healing surgical wound, it is closed. There is no drainag e, no erythema. His left leg is slightly shortened. He has pain with motion. There is palpable pul se, intact sensation. IMAGES: X-rays of the pelvis and left hip demonstrated a fractured greater trochanter with extension distally. The bipolar hemiarthroplasty stem appears loosened and has subsided upon impact. IMPRESSION: History of hemiarthroplasty of left hip, now with new fall and new fracture, periprosthe tic proximal femur fracture. PLAN: At this point, the patient will be admitted to the hospital. He will have pain control. He w ill have appropriate medical care. We will plan for revision of his hip arthroplasty tomorrow. The stem does appear to loose and we will need revision to a long stem component versus cerclage wiring o f the fractured fragments. He is to aware of this and wants to proceed. [facility].
[2017-12-05 01:20] VITALS: BMI 17.3
[2017-12-05] MEDS: Sodium Chloride 0.9% 1,000 ML IV SCH ×3 (03:46→18:21)
[2017-12-05] MEDS: traMADol HCl 50 MG TAB PO SCH ×4 (04:57→21:23)
[2017-12-05] MEDS: Acetaminophen 500 MG TAB PO SCH ×4 (04:57→21:23)
[2017-12-05 05:29] LABS: #Eosinphils 0.1 thou/uL (0.0-0.7); #Lymphocytes 2.2 thou/uL (1.20-3.40); #Monocytes 0.8 thou/uL (0.11-0.59); #Neutrophils 6.6 thou/uL (1.40-6.50); %Eosinophils 1.4 % (0.0-10.0); %Lymphocytes 22.5 % (21.0-51.0); %Monocytes 8.3 % (0.0-10.0); %Neutrophils 67.9 % (42.0-75.0); Hemoglobin 10.8 g/dL (14.0-18.0); Mean Corpuscular HGB CONC 33.5 g/dL (32.0-36.0); Mean Corpuscular Hemoglobin 31.2 pg (27.0-31.0); Mean Platelet Volume 7.6 fL (7.4-10.4); Platelet Count 205 thou/uL (130-400); RBC Distribution Width 13.2 % (11.5-14.5); Red Blood Cell (RBC) Count 3.46 mill/uL (4.70-6.10); White Blood Cell (WBC) Count 9.7 thou/uL (4.8-10.8)
[2017-12-05 05:44] LABS: Anion Gap 10 mmol/L (10-20); BUN (Urea Nitrogen) 18 mg/dL (8.4-25.7); Calc. Creatinine Clearance 51 mL/min (70-130); Calcium 8.1 mg/dL (7.8-10.44); Carbon Dioxide 21 mmol/L (23-31); Chloride 104 mmol/L (98-107); Estimated GFR-MDRD 74; Glucose 111 mg/dL (83-110); Magnesium 2.2 mg/dL (1.6-2.6); Phosphorus 3.6 mg/dL (2.3-4.7); Potassium 4.2 mmol/L (3.5-5.1); Sodium 131 mmol/L (136-145)
[2017-12-05] MEDS ORDERED: CEFAZOLIN/Water 2 GM/20 ML SYRINGE SLOW IVP SCH (08:00)
[2017-12-05] MEDS: Famotidine 20 MG TAB PO SCH ×2 (09:07→21:23)
[2017-12-05] MEDS: Oxazepam 10 MG CAP PO SCH ×3 (09:07→21:23)
[2017-12-05] MEDS: Cyanocobalamin (Vitamin B-12) 1,000 MCG TAB PO SCH (09:07)
[2017-12-05] MEDS: Folic Acid 1 MG TAB PO SCH (09:07)
[2017-12-05] MEDS ORDERED: CEFAZOLIN/Water 2 GM/20 ML SYRINGE ONE (11:55)
[2017-12-05] MEDS ORDERED: Fentanyl 250 MCG/5 ML VIAL ONE (12:16)
[2017-12-05] MEDS ORDERED: Promethazine HCl 25 MG/ML VIAL ONE (12:16)
[2017-12-05] MEDS ORDERED: Neomycin-Polymyxin 1 ML AMP ONE (12:26)
[2017-12-05] MEDS ORDERED: Albumin 5% 500 ML ONE (13:29)
[2017-12-05] MEDS ORDERED: PHENYLEPHRINE-NS 100 MCG/ML 10 ML SYRINGE ONE ×2 (14:08→17:21)
[2017-12-05] MEDS ORDERED: Norepinephrine 4 MG/4 ML VIAL ONE ×2 (14:08→17:21)
[2017-12-05] MEDS ORDERED: Phenylephrine HCL 10 MG/ML VIAL ONE (14:08)
[2017-12-05] MEDS ORDERED: Midazolam HCl 2 mg/2 ml Vial ONE (14:15)
[2017-12-05] MEDS ORDERED: Ondansetron HCl/PF 4 MG/2 ML Vial IVP PRN (15:22)
[2017-12-05] MEDS ORDERED: Morphine Sulfate 2 MG/ML SYRINGE SLOW IVP PRN (15:22)
[2017-12-05] MEDS ORDERED: Promethazine HCl 25 MG/ML VIAL SLOW IVP PRN (15:22)
--- NOTE | 2017-12-05 15:59 | PRG ---
DATE OF SERVICE: 12/05/2017 ATTENDING PHYSICIAN: Dr. Porfirio Donahue. SUBJECTIVE: Mr. Jones is a 77-year-old male, who was admitted one day ago after a ground-level fall with a left hip fracture. He was admitted by Trauma Services to the surgical floor overnight. Pain has been optimized. Orthopedics was consulted and plans to take patient to the OR today for fixatio n of the fracture. OBJECTIVE: VITAL SIGNS: Temperature 97.6, pulse 86, respirations 12, O2 sat 95% on room air, blood pressure 98/62. LABORATORY DATA: Chemistry: Sodium 131, potassium 4.2, chloride 104, carbon dioxide 21, BUN 18, cre atinine 0.99, glucose 111. Hematology: WBC 9.7; RBC 3.46; hemoglobin 10.8 down from 12.0 yesterday; hematocrit 32.2, down from 35.4 yesterday; platelets 205. ASSESSMENT: 1. Status post ground-level fall. 2. Left hip fracture, periprosthetic. 3. History of chronic alcohol use. 4. Acute traumatic pain. PLAN: 1. Orthopedic Service plans to take patient to OR today. 2. Physical and occupational therapy with orthopedic restrictions postoperatively. 3. Antibiotics per orthopedic recommendations. 4. Transition to oral pain medication postoperatively. 5. Case management for discharge planning. Social work for alcohol resources. The patient was seen and examined with Dr. Donahue, who agrees with plan.
[2017-12-05] MEDS ORDERED: Fentanyl 100 MCG/2 ML VIAL ONE (16:12)
--- NOTE | 2017-12-05 16:38 | RAD ---
FRONTAL RADIOGRAPH PELVIS: 12/05/17 COMPARISON: 10/19/17. HISTORY: Evaluate following hip surgery. FINDINGS: Cutaneous rohan are seen laterally overlying the left hip. There is a total hip arthroplasty on the left. The obliquely oriented fracture of the proximal left femur at the base of the greater trochant er on the left seen on the 12/04/17 examination has been treated with a lateral metallic fixation plat e with cerclage wires. The pelvic ring appears intact. Neither hip is dislocated. No widening of the sacroiliac joints or pubic symphysis. Vascular calcifications of the pelvis and imaged thighs noted. IMPRESSION: Postoperative change consistent with open reduction and internal fixation of the left proximal femur. POS: [facility]
--- NOTE | 2017-12-05 16:39 | RAD ---
LEFT HIP: Cross-table lateral view. 12/05/17 HISTORY: Open reduction and internal fixation. FINDINGS: Cutaneous rohan are noted. There is a left hip arthroplasty. Cerclage wires and a lateral plate are present treating fracture of the proximal left femur seen on the 12/04/17 exam. IMPRESSION: Open reduction and internal fixation as above. POS: [facility]
[2017-12-05] MEDS ORDERED: ePHEDrine/0.9% NaCl/PF SYRINGE 50 mg/10 ml ONE (17:21)
[2017-12-05] MEDS ORDERED: PROPOFOL 200 MG/20 ML VIAL ONE (17:21)
[2017-12-05] MEDS ORDERED: Calcium Chloride 1 GM/10 ML Abboject SYRINGE ONE (17:21)
[2017-12-05] MEDS ORDERED: Dexamethasone 20 MG/5 ML VIAL ONE (17:21)
[2017-12-05] MEDS ORDERED: Lidocaine 1% PF 5 ML VIAL ONE (17:21)
[2017-12-05] MEDS: CEFAZOLIN/Water 2 GM/20 ML SYRINGE SLOW IVP SCH (21:23)
[2017-12-06] MEDS: CEFAZOLIN/Water 2 GM/20 ML SYRINGE SLOW IVP SCH ×2 (06:14→11:31)
[2017-12-06] MEDS: Acetaminophen 500 MG TAB PO SCH ×4 (06:14→22:47)
[2017-12-06] MEDS: traMADol HCl 50 MG TAB PO SCH ×4 (06:14→22:46)
[2017-12-06] MEDS: Sodium Chloride 0.9% 1,000 ML IV SCH ×3 (06:41→23:28)
[2017-12-06] MEDS ORDERED: Sodium Chloride 0.9% 1,000 ML IV SCH (08:15)
[2017-12-06 08:19] LABS: #Lymphocytes 1.5 thou/uL (1.20-3.40); #Monocytes 0.9 thou/uL (0.11-0.59); #Neutrophils 9.6 thou/uL (1.40-6.50); %Basophils 0.1 % (0.0-1.0); %Lymphocytes 12.7 % (21.0-51.0); %Monocytes 7.4 % (0.0-10.0); %Neutrophils 79.8 % (42.0-75.0); Hemoglobin 7.2 g/dL (14.0-18.0); Mean Corpuscular Hemoglobin 30.9 pg (27.0-31.0); Mean Corpuscular Volume 93.6 fl (80.0-94.0); Mean Platelet Volume 7.9 fL (7.4-10.4); Platelet Count 163 thou/uL (130-400); RBC Distribution Width 13.1 % (11.5-14.5); Red Blood Cell (RBC) Count 2.32 mill/uL (4.70-6.10)
[2017-12-06] MEDS: Folic Acid 1 MG TAB PO SCH (08:19)
[2017-12-06] MEDS: Cyanocobalamin (Vitamin B-12) 1,000 MCG TAB PO SCH (08:19)
[2017-12-06] MEDS: Famotidine 20 MG TAB PO SCH ×2 (08:19→22:45)
[2017-12-06] MEDS: Oxazepam 10 MG CAP PO SCH ×3 (08:20→22:46)
[2017-12-06 10:50] LABS: Anion Gap 11 mmol/L (10-20); BUN (Urea Nitrogen) 14 mg/dL (8.4-25.7); Calc. Creatinine Clearance 50 mL/min (70-130); Calcium 8.4 mg/dL (7.8-10.44); Carbon Dioxide 22 mmol/L (23-31); Chloride 104 mmol/L (98-107); Estimated GFR-MDRD 71; Glucose 111 mg/dL (83-110); Magnesium 1.6 mg/dL (1.6-2.6); Phosphorus 3.8 mg/dL (2.3-4.7); Potassium 4.2 mmol/L (3.5-5.1); Sodium 133 mmol/L (136-145)
[2017-12-06] MEDS: Ibuprofen 200 MG TAB PO SCH ×2 (12:01→22:46)
--- NOTE | 2017-12-06 14:20 | PRG ---
DATE OF SERVICE: 12/06/2017 SUBJECTIVE: This is a 77-year-old man who is postoperative day #1, status post revision left hip art hroplasty. The patient is awake and alert, moves all extremities and answering questions appropriate ly. He reports adequate pain control. Urinary output is difficult to measure as the patient is wear ing briefs. He does, however, have spontaneous urination. Bladder scan revealed 240 mL in the [facility]. The patient is tolerating diet. He received fluid bolus this morning for low systolic blood pre ssure. OBJECTIVE: VITAL SIGNS: Currently includes blood pressure 94/44, pulse 94, respiratory rate is 12, maximum temp erature in the last 24 hours is 98.2 degrees Fahrenheit, oxygen saturation is 94% on room air. HEENT: Reveals normocephalic and atraumatic. Pupils are equal, round, and reactive to light and acc ommodation. Extraocular muscles are intact bilaterally. No sclerae icterus present. HEART: Reveals regular rate and rhythm, no murmurs or gallops auscultated. CHEST: Lungs are clear to auscultation bilaterally. Breathing regular and unlabored. ABDOMEN: Soft, nontender, nondistended. EXTREMITIES: Reveals 2+ radial and pedal pulses bilaterally. No ankle edema is present. NEUROLOGIC: Reveals no focal deficits present. LABORATORY DATA: Today includes a CBC with 12,000 white blood cells, hemoglobin and hematocrit are 7 .2 and 21.7, which is in mcdermott contrast to 12.0 and 35.4 two days previously. Platelet count today is 163,000. Metabolic profile: Sodium 133, potassium is 4.2, chloride is 104, bicarbonate is 22, BUN is 14, creatinine is 1.02, glucose is 111, magnesium 1.6, phosphorus is 3.8. IMPRESSION: 1. Postoperative day #1 status post revision left hip arthroplasty. 2. Acute blood loss anemia. 3. Acute hypomagnesemia. PLAN: 1. Patient will be transfused with 1 unit of packed red blood cells and we will monitor urinary outp ut and blood pressure as endpoint of resuscitation. 2. Correct abnormal electrolytes. 3. Initiate physical and occupational therapy. The patient will be evaluated by PM&R for possible i npatient rehabilitation. Above findings and plan discussed with the patient who indicates understanding of information given. I have answered his questions.
--- NOTE | 2017-12-06 21:21 | OP ---
DATE OF PROCEDURE: 12/05/2017 PREOPERATIVE DIAGNOSIS: Left proximal femur fracture status post left hip hemiarthroplasty. POSTOPERATIVE DIAGNOSIS: Left proximal femur fracture status post left hip hemiarthroplasty. SURGICAL PROCEDURE: Revision of left hip hemiarthroplasty and open reduction with internal fixation of left greater trochanter. ANESTHESIA: General. SURGEON: Rahul Ken M.D. MANAGING CONSULTANT: Gabino. IMPLANTS: The left hip hemiarthroplasty that had been previously placed was reutilized for the surge ry and this included a DePuy Beulah stem and a bipolar head with the addition of new Synthes trochant kulwant reattachment device with cables as well as Simplex antibiotic cement. BLOOD LOSS: Approximately 300 mL COMPLICATIONS: None. DRAINS: None. SPECIMEN: None. OUTCOME: Satisfactory. INDICATIONS: The patient is a 77-year-old gentleman status post left femoral neck fracture treated w ith a hemiarthroplasty. Unfortunately, the patient went on to fall since the surgery and now has a d isplaced greater trochanter fracture with some obvious radiographic loosening of the femoral stem. A s such, the patient now consented for revision hip hemiarthroplasty and open reduction internal fixat ion of the greater trochanter. Informed consent has been obtained. I believe all questions answered . PROCEDURE IN DETAIL: The patient was brought to the operating room and a timeout performed followed by induction of general anesthesia. Next, the patient was positioned in a right lateral decubitus po sition and a sterile prep and drape was performed in the left lower extremity. Following the previou s skin incision, the skin was incised and then dissection carried down to the underlying tensor fasci a and fascia nitesh. This structure was incised in line with the skin incision and then reflected ante riorly and posteriorly with the Charnley retractor. The trochanteric bursa was swept off of the post erior aspect of the hip. At this point, the trochanteric fracture was easily visualized and the troc hanter basically was able to be slid anteriorly given that it still had attachments of both the abduc tors and the vastus lateralis attachment. Once slid anteriorly, the femoral component was visualized along with the hemiarthroplasty head. The hip was able to be dislocated and the head removed and th e stem removed without difficulty. At this point, thorough irrigation of the wound was performed and it should be noted that a swab was sent for Gram stain and culture and sensitivity. There was no ev idence of infection. Next, the T handle reamers were passed down the femoral canal and a nearly size 8 was achieved with these hand reamers. Broaching was then performed and we were able to bring the broach size up to a size 7 with good fit and fill proximally. As such, a size 7 broach was left in p lace and then attention was placed at the greater trochanter fracture. This fracture was able to be reduced to anatomic alignment and provisionally held in place manually as well as with a small tenacu lum. Next, the Synthes trochanteric claw and cable system was used with three cables passed around t he greater trochanter and medial aspect of the femur securing the trochanter in anatomic alignment. Once fully secured, the broach was removed. This broach was used more as a template for stabilizatio n of the fracture. Once removed, the fracture was inspected from the endosteal surface and found to be anatomically aligned. Next, the femoral canal was thoroughly irrigated and then cement preparatio n performed. The prior used stem was cleaned and then cemented in place in standard fashion. Once t he cement had fully cured, the trial reduction again performed and the same size bipolar component wa s felt to be appropriate. As such, this component was reinserted on the stem, the hip reduced. Unfo rtunately with the fracture of the greater trochanter, we lost the attachment and tissue of the short external rotators. A capsular repair was feasible and was performed using #2 Vicryl. There really was not a short external rotator to reattach and as such following the capsular repair, the tensor fa scia was reapproximated with #2 Vicryl followed by 2-0 Vicryl subcutaneously, and staple for the skin . A Xeroform gauze and tape dressing was applied to the thigh and then patient was transferred to re covery room in stable condition. There were no complications and the patient tolerated the procedure well.
[2017-12-07] MEDS: Sodium Chloride 0.9% 1,000 ML IV SCH ×3 (02:29→23:44)
[2017-12-07] MEDS: Acetaminophen 500 MG TAB PO SCH ×4 (04:37→21:12)
[2017-12-07] MEDS: traMADol HCl 50 MG TAB PO SCH ×4 (04:37→21:12)
[2017-12-07] MEDS: Ibuprofen 200 MG TAB PO SCH ×3 (04:37→18:30)
[2017-12-07] MEDS: Cyanocobalamin (Vitamin B-12) 1,000 MCG TAB PO SCH (08:57)
[2017-12-07] MEDS: Folic Acid 1 MG TAB PO SCH (08:57)
[2017-12-07] MEDS: Oxazepam 10 MG CAP PO SCH ×3 (08:57→21:12)
[2017-12-07] MEDS: Famotidine 20 MG TAB PO SCH (08:59)
--- NOTE | 2017-12-07 09:42 | PRG ---
DATE OF SERVICE: 12/07/2017 SUBJECTIVE: Mrs. Jones is post-injury day #3 status post fall with periprostatic left femur fractur e. He is now postoperative day #1, status post revision of periprostatic left femur fracture. He re ceived 1 unit of packed red blood cells yesterday for acute blood loss anemia. Currently, the patien t reports adequate pain control. He moves all extremities and answers questions appropriately. Glas wenceslao coma scale remains at 15. He is tolerating diet. Urinary output has been adequate. OBJECTIVE: VITAL SIGNS: Includes blood pressure 115/63, pulse 84, respiratory rate is 16, temperature is 98 deg juliana Fahrenheit, oxygen saturation is 94% on room air. HEENT: Reveals normocephalic and atraumatic. Pupils are equal, round, and reactive to light and acc ommodation. Extraocular muscles intact bilaterally. He has no sclerae icterus present. Oral mucosa is pink and moist. No lesions are noted. NECK: Supple. No palpable lymphadenopathy or thyromegaly present. HEART: Reveals regular rate and rhythm. No murmurs or gallops auscultated. CHEST: Clear to auscultation bilaterally. Breathing regular and unlabored. ABDOMEN: Soft, nontender, nondistended. EXTREMITIES: Reveal 2+ radial and pedal pulses bilaterally. He has a 2+ left ankle edema present. NEUROLOGIC: Reveals no focal deficits present. IMPRESSION: 1. Postoperative day #1, status post revision left hip hemiarthroplasty. 2. Acute blood loss anemia, stable. PLAN: 1. Continue with physical and occupational therapy. The patient has been evaluated for possible inp atient rehabilitation. 2. We will continue to monitor his urinary output as an end point of resuscitation. We will repeat a CBC tomorrow to ensure adequate hemostasis.
[2017-12-08 05:23] LABS: #Eosinphils 0.4 thou/uL (0.0-0.7); #Lymphocytes 2.5 thou/uL (1.20-3.40); #Monocytes 0.7 thou/uL (0.11-0.59); #Neutrophils 7.5 thou/uL (1.40-6.50); %Basophils 0.1 % (0.0-1.0); %Eosinophils 3.2 % (0.0-10.0); %Lymphocytes 22.4 % (21.0-51.0); %Monocytes 6.6 % (0.0-10.0); %Neutrophils 67.6 % (42.0-75.0); Hemoglobin 8.6 g/dL (14.0-18.0); Mean Corpuscular HGB CONC 33.4 g/dL (32.0-36.0); Mean Corpuscular Hemoglobin 31.4 pg (27.0-31.0); Mean Corpuscular Volume 93.9 fl (80.0-94.0); Mean Platelet Volume 7.7 fL (7.4-10.4); Platelet Count 197 thou/uL (130-400); RBC Distribution Width 13.6 % (11.5-14.5); Red Blood Cell (RBC) Count 2.74 mill/uL (4.70-6.10)
[2017-12-08] MEDS: Acetaminophen 500 MG TAB PO SCH ×4 (05:34→21:51)
[2017-12-08] MEDS: Ibuprofen 200 MG TAB PO SCH ×3 (05:34→19:58)
[2017-12-08] MEDS: traMADol HCl 50 MG TAB PO SCH ×4 (05:35→21:52)
[2017-12-08 05:36] LABS: Anion Gap 7 mmol/L (10-20); BUN (Urea Nitrogen) 17 mg/dL (8.4-25.7); Calc. Creatinine Clearance 55 mL/min (70-130); Calcium 8.3 mg/dL (7.8-10.44); Carbon Dioxide 26 mmol/L (23-31); Chloride 104 mmol/L (98-107); Estimated GFR-MDRD 79; Glucose 85 mg/dL (83-110); Magnesium 1.8 mg/dL (1.6-2.6); Phosphorus 2.5 mg/dL (2.3-4.7); Sodium 133 mmol/L (136-145)
[2017-12-08] MEDS: Sodium Chloride 0.9% 1,000 ML IV SCH ×2 (06:45→16:33)
[2017-12-08] MEDS: Famotidine 20 MG TAB PO SCH (09:49)
[2017-12-08] MEDS: Cyanocobalamin (Vitamin B-12) 1,000 MCG TAB PO SCH (09:49)
[2017-12-08] MEDS: Folic Acid 1 MG TAB PO SCH (09:49)
[2017-12-08] MEDS: Oxazepam 10 MG CAP PO SCH ×3 (09:52→21:51)
--- NOTE | 2017-12-08 12:57 | PRG ---
DATE OF SERVICE: 12/08/2017 ATTENDING PHYSICIAN: Dr. Donahue. SUBJECTIVE: Mr. Jones is a 77-year-old male with a history of chronic alcohol use who was admitted on 12/04/2017 after suffering a fall down a couple of steps resulting in a left periprosthetic hip fr acture. He underwent surgical fixation of his left greater trochanter and revision of his left hip h emiarthroplasty on 12/05/[address] Ken. Patient was then transferred to the surgical floor. He did receive 1 unit of PRBCs 2 days ago for acute blood loss anemia. He has since been stable. He is tolerating a general diet. He reports adequate pain control. OBJECTIVE: VITAL SIGNS: BP 124/78, pulse 96, temperature 97.5, respirations 16, O2 sat 95% on room air. GENERAL APPEARANCE: Patient is an elderly, somewhat malnourished appearing adult male in no acute di stress. HEENT: Normocephalic and atraumatic. RESPIRATORY: His breath sounds are clear to auscultation bilaterally. CARDIOVASCULAR: He has an irregular rhythm. His heart sounds are normal. ABDOMEN: Soft, flat and nontender throughout. He has hypoactive bowel sounds. EXTREMITIES: The patient is neurovascularly intact x4. NEUROLOGIC: The patient's GCS is 15. He is alert and oriented x3. He has no focal deficits. LABORATORY DATA: Today's CBC is significant for white blood cells 11.0, hemoglobin 8.6, hematocrit 2 5.7, and platelets 197. Chemistry panel: Sodium 133, potassium 4.0, chloride 104, bicarbonate 26, B UN 17, creatinine 0.93, glucose 85, calcium 8.3, phosphorus 2.5, magnesium 1.8. IMAGING: There are no images to review today. ASSESSMENT: 1. Status post ground level fall. 2. Left hip periprosthetic fracture, status post revision of hardware and open reduction and interna l fixation of greater trochanter. 3. History of chronic alcohol use. 4. Acute traumatic pain. 5. Acute blood loss anemia. 6. Malnourishment. PLAN: 1. Discontinue fluids given patient's adequate p.o. intake. 2. We will start bowel regimen to help promote bowel function. 3. Continue pain control as ordered. 4. Incentive spirometry and pulmonary toileting. 5. The patient is a good candidate for rehabilitation; however, due to his insurance not covering th e cost of rehabilitation, patient is unable to meet the upfront costs. Case management is following to look into alternate placement. This patient was seen and examined on rounds with Dr. Donahue who agrees with the assessment and plan.
[2017-12-08] MEDS ORDERED: Polyethylene Glycol 3350 17 GM Packet PO SCH (14:00)
[2017-12-08] MEDS ORDERED: Senokot S 8.6-50 MG TAB PO SCH (14:00)
[2017-12-08] MEDS ORDERED: Bisacodyl 10 MG SUPP PR SCH (14:00)
[2017-12-08] MEDS: Senokot S 8.6-50 MG TAB PO SCH (21:51)
--- NOTE | 2017-12-09 02:08 | PRG ---
DATE OF SERVICE: 12/08/2017 SUBJECTIVE: This is a 77-year-old male status post ground level fall. He is postop day 3, status po st hip fracture/periprosthetic repair. Upon my evaluation this evening, the patient vocalized no com plaint. OBJECTIVE: VITAL SIGNS: Reviewed and stable. The patient is resting in bed, in no acute distress. Breathing i s nonlabored. ABDOMEN: Soft, nontender, nondistended. NEUROLOGIC: No focal deficit is noted. ASSESSMENT: As documented in daily progress note. PLAN: Continue care as ordered. Continue to monitor. Await final disposition with the assistance o f case management.
[2017-12-09] MEDS: traMADol HCl 50 MG TAB PO SCH ×3 (04:34→08:38)
[2017-12-09] MEDS: Ibuprofen 200 MG TAB PO SCH ×2 (04:34→11:34)
[2017-12-09] MEDS: Acetaminophen 500 MG TAB PO SCH ×2 (04:34→08:32)
[2017-12-09] MEDS: Cyanocobalamin (Vitamin B-12) 1,000 MCG TAB PO SCH (08:30)
[2017-12-09] MEDS: Oxazepam 10 MG CAP PO SCH (08:32)
[2017-12-09] MEDS: Famotidine 20 MG TAB PO SCH (08:32)
[2017-12-09] MEDS: Senokot S 8.6-50 MG TAB PO SCH (08:33)
[2017-12-09] MEDS: Folic Acid 1 MG TAB PO SCH (08:37)
[2017-12-09] MEDS ORDERED: Enoxaparin Sodium 30 MG/0.3 ML SYRINGE SC SCH (09:00)
[2017-12-09] MEDS ORDERED: Polyethylene Glycol 3350 17 GM Packet PO SCH (09:00)
[2017-12-09] MEDS ORDERED: Bisacodyl 10 MG SUPP PR SCH (09:00)
--- NOTE | 2017-12-09 09:25 | PRG ---
DATE OF SERVICE: 12/09/2017 SUBJECTIVE: The patient did well overnight. Dressing changed at shift change yesterday. No new complaints. Worked with physical therapy yesterday. OBJECTIVE: VITAL SIGNS: Temperature 98, pulse 92, respiratory rate 16, blood pressure 126/ 70. GENERAL: The patient is awake, alert, and oriented x3. He is in no acute distress. EXTREMITIES: The left lower extremity was examined. There is an Aquacel AG dressing intact to the left hip. There is saturation at the proximal site. This was removed and evaluated. Mild amount of drainage from the proximal wound. No purulence. No surrounding erythema. No palpable cavity. Not able to express any drainage. This was redressed with a tegapad. Distal neurovascular status is intact. Positive movement in the left leg. ASSESSMENT: The patient is stable, status post revision of periprosthetic fracture to the left hip. PLAN: He will continue working with physical therapy. Case management is working on his case at this time. Continue current plan of care. CHRISTY
[2017-12-09 12:22] VITALS: BP 119/69; TEMP 97.4
--- NOTE | 2017-12-09 19:45 | DIS ---
DATE OF ADMISSION: 12/04/2017 DATE OF DISCHARGE: 12/09/2017 ADMITTING PHYSICIAN: Anirudh Ruggiero M.D. DISCHARGING PHYSICIAN: Porfirio Donahue DO ADMISSION DIAGNOSES: 1. Status post ground level fall. 2. Left periprosthetic hip fracture. 3. History of chronic alcohol use. 4. Acute traumatic pain. DISCHARGE DIAGNOSES: 1. Status post ground level fall. 2. Left periprosthetic hip fracture. 3. History of chronic alcohol use. 4. Acute traumatic pain. PROCEDURES PERFORMED: Revision of left hip hemiarthroplasty, and open reduction and internal fixatio n of left greater trochanter. HOSPITAL COURSE: Mr. Jones is a 77-year-old male, who has a history of chronic alcohol use, who was walking up some steps to his trailer when he fell backwards and landed on his left hip. He has had a previous hip surgery in 10/2017. The patient was brought to [facility], where he was evaluated and found to have a left intertrochanteric femur fracture with damage to previous hardware. Orthoped ic Surgery was consulted and Trauma Services was asked to admit. The patient underwent a revision of his hip hardware along with open reduction and internal fixation of his left greater trochanter on 0 12/05/2017. Postoperatively, the patient suffered from acute blood loss anemia, requiring a transfusi on of 1 unit of packed red blood cells on 12/06/2017. He remained hemodynamically stable thereafter. The patient was initially thought to be a good candidate for rehabilitation. However, his insuranc e would not pay for the full amounts and he could not afford to pay the up-front cost. He was accept ed to a snf facility on 12/09/2017 and was transferred in stable condition. DISCHARGE MEDICATIONS: The patient discharged with all of his inpatient medications. See electronic medical record for details. ACTIVITY INSTRUCTIONS: Orthopedic limitations include weightbearing as tolerated. NOURISHMENT INSTRUCTIONS: The patient discharged on a regular diet with supplemental Ensure Enlive b .i.d. THERAPY INSTRUCTIONS: Occupational and physical therapy. FOLLOWUP INSTRUCTIONS: The patient is instructed to follow up with his primary care doctor in 7 days . The patient also instructed to follow up with Dr. Rahul Ken in 10-14 days. This patient was seen and examined on rounds with Dr. Donahue, who agrees with discharge plan.
[2017-12-09] MEDS ORDERED: Tamsulosin HCl 0.4 MG CAP PO SCH (21:00)
[2017-12-10] MEDS ORDERED: Cyanocobalamin (Vitamin B-12) 1,000 MCG TAB PO SCH (09:00)
[2017-12-10] MEDS ORDERED: Amlodipine 10 MG TAB PO SCH ×2 (09:00)
[2017-12-10] MEDS ORDERED: CYANOCOBALAMIN PO SCH (09:00)
[2017-12-10] MEDS ORDERED: Lisinopril 10 MG TAB PO SCH ×2 (09:00)
[2017-12-10] MEDS ORDERED: Aspirin 81 mg Enteric Coated Tablet PO SCH (09:00)
== END 2017-12-09 15:00 | DRG 467 ==
LOC: ERS 15:14 → SURG B 18:42
PROVIDERS: ADMIT Surgery; ATTEND Surgery
PROC: 0SWS0JZ Revision of Synthetic Substitute in Left Hip Joint, Femoral Surface, Open Approach (ICD-10-PCS; principal; 2017-12-05)
PROC: 0QS704Z Reposition Left Upper Femur with Internal Fixation Device, Open Approach (ICD-10-PCS; 2017-12-05)
PROC: 30233N1 Transfusion of Nonautologous Red Blood Cells into Peripheral Vein, Percutaneous Approach (ICD-10-PCS; 2017-12-06)
DX: S72.142A Displaced intertrochanteric fracture of left femur, initial encounter for closed fracture (principal); E46 Unspecified protein-calorie malnutrition; M97.02XA Periprosthetic fracture around internal prosthetic left hip joint, initial encounter; E83.42 Hypomagnesemia; D62 Acute posthemorrhagic anemia; Z68.1 Body mass index [BMI] 19.9 or less, adult; S72.112A Displaced fracture of greater trochanter of left femur, initial encounter for closed fracture; Z87.81 Personal history of (healed) traumatic fracture; F10.229 Alcohol dependence with intoxication, unspecified; W10.8XXA Fall (on) (from) other stairs and steps, initial encounter; I10 Essential (primary) hypertension; F17.210 Nicotine dependence, cigarettes, uncomplicated
CPT/HCPCS: 36415; 36430; 51703; 71045; 72170; 80048; 80053; 80307; 83735; 84100; 85025; 85610; 85730; 86850; 86900; 86901; 87070; 87205; 93005; C1713; C1781; G0390; G8978-GP-CL; G8979-GP-CJ; G8987-GO-CL; G8988-GO-CJ; J1100; J1650; J2001; J2250; J2370; J2550; J2704; J3010; P9016; P9045

== ENCOUNTER 2018-09-28 09:52 | Inpatient (IN) | payer MEDICARE, OTHER ==
--- NOTE | 2018-09-28 11:10 | RAD ---
1 VIEW CHEST: Date: 09/28/18 COMPARISON: 12/04/17. HISTORY: Altered mental status. Worsening congestion. FINDINGS: Atherosclerosis of aorta. Normal caliber silhouette. Pulmonary vessels are within normal limits. Ther e is fullness in the right hilum with increased right perihilar opacity. There is no pneumothorax or osseous abnormality. Vascular calcifications are noted. IMPRESSION: Increased right perihilar fullness, which may be due to atelectasis, pneumonia, or infiltrate. Furthe r evaluation with chest CT may be beneficial. POS: [facility]
[2018-09-28 11:17] LABS: #Eosinphils 0.2 thou/uL (0.0-0.7); #Lymphocytes 1.7 thou/uL (1.20-3.40); #Monocytes 0.6 thou/uL (0.11-0.59); #Neutrophils 10.8 thou/uL (1.40-6.50); %Basophils 0.2 % (0.0-1.0); %Eosinophils 1.4 % (0.0-10.0); %Monocytes 4.6 % (0.0-10.0); %Neutrophils 80.8 % (42.0-75.0); Hemoglobin 10.1 g/dL (14.0-18.0); Mean Corpuscular HGB CONC 31.9 g/dL (32.0-36.0); Mean Corpuscular Hemoglobin 27.8 pg (27.0-31.0); Mean Corpuscular Volume 87.2 fL (78.0-98.0); Mean Platelet Volume 8.6 fL (7.4-10.4); Platelet Count 241 thou/uL (130-400); RBC Distribution Width 14.7 % (11.5-14.5); Red Blood Cell (RBC) Count 3.65 mill/uL (4.70-6.10); White Blood Cell (WBC) Count 13.4 thou/uL (4.8-10.8)
[2018-09-28 11:27] LABS: ALT (SGPT) 12 U/L (8-55); AST (SGOT) 15 U/L (5-34); Albumin 2.7 g/dL (3.4-4.8); Alkaline Phosphatase 52 U/L (40-150); Anion Gap 12 mmol/L (10-20); BUN (Urea Nitrogen) 36 mg/dL (8.4-25.7); Bilirubin, Total 0.4 mg/dL (0.2-1.2); Calc. Creatinine Clearance 0 mL/min (70-130); Carbon Dioxide 16 mmol/L (23-31); Chloride 117 mmol/L (98-107); Estimated GFR-MDRD 43; Globulin 3.9 g/dL (2.4-3.5); Glucose 91 mg/dL (83-110); Potassium 4.2 mmol/L (3.5-5.1); Protein, Total 6.6 g/dL (5.8-8.1); Sodium 141 mmol/L (136-145)
[2018-09-28] MEDS ORDERED: Adacel (T-DAP) 0.5 ML SYRINGE ONE (11:49)
--- NOTE | 2018-09-28 13:09 | CT ---
CONTRAST ENHANCED CT CHEST AND ABDOMEN AND PELVIS: HISTORY: The patient complained of abdominal pain for one month. TECHNIQUE: Contrast enhanced CT images of the chest, abdomen, and pelvis are obtained. FINDINGS: CHEST: Extensive coronary artery calcifications are seen. A small right-sided pleural effusion is s een. Areas of posterior lung atelectasis are present. No definite evidence of mediastinal, axillary, or hilar lymphadenopathy is seen. ABDOMEN AND PELVIS: The liver and spleen are unremarkable. The gallbladder and pancreas are unremar kable. Extensive atherosclerotic calcification is seen in the abdominal aorta. Bilateral renal vascular calcification is seen. The adrenal glands are unremarkable. No evidence of periaortic lymphadenopathy is seen. Extensive atherosclerotic calcification is seen in the right and left common iliac arteries. There is extensive posterior bladder wall thickening. This may represent a bladder neoplasm versus c ystitis. Correlate with urological consultation and possible direct visualization. Areas of air space opacity seen in the right upper lobe, with adjacent areas of right upper lobe pare nchymal scarring. This may represent right upper lobe mild areas of developing pneumonia. IMPRESSION: Extensive bladder wall thickening, concerning for bladder neoplasm versus cystitis. POS: [facility]
[2018-09-28] MEDS ORDERED: Azithromycin 500 MG VIAL ONE (13:22)
[2018-09-28] MEDS ORDERED: cefTRIAXone\\ROCEPHIN 2 GM VIAL ONE (13:22)
[2018-09-28] MEDS ORDERED: Acetaminophen 325 MG TAB PO PRN (14:19)
[2018-09-28] MEDS ORDERED: Senokot S 8.6-50 MG TAB PO PRN (14:19)
[2018-09-28] MEDS ORDERED: hydrALAZINE 20 MG/ML VIAL SLOW IVP PRN (14:24)
--- NOTE | 2018-09-28 15:17 | HP ---
PRIMARY CARE PROVIDER: The patient reports that he has a primary care provider in [place], but does not remember the name. [facility]. CHIEF COMPLAINT: Abdominal pain. HISTORY OF PRESENT ILLNESS: Mr. Jones is a pleasant 78-year-old gentleman, who was seen at [facility] on September 28, 2018. He reports that he has had 4 months of suprapubic pain. He describes it as sharp, 10/10 at its worst, on and off, no known aggravating or relieving factors. The patient reports being able to urinate well. He denies any fevers or chills. He denies any nausea or vomiting. He reports occasional cough that is nonproductive. He denies any chest pain. His abdominal pain is nonradiating. He cannot recall any other associated symptoms. The patient also reports that he has been losing weight, but is unable to quantify. REVIEW OF SYSTEMS: All other systems reviewed and found to be negative. PAST MEDICAL HISTORY: Hypertension and blindness. PAST SURGICAL HISTORY: Cataract surgery, left hip surgery, and appendectomy. SOCIAL HISTORY: The patient drinks more than 5 alcoholic drinks a day. He smokes 1 pack of cigarettes a day. He denies any history of recreational drug use. FAMILY HISTORY: He denies any family history of malignancy. ALLERGIES: NO KNOWN DRUG ALLERGIES. CURRENT MEDICATIONS: The patient reports that he is on 3 medications, but is unable to recall their names or doses. CODE STATUS: The patient reports that he is full code. If he were to be incapacitated, he wants his treating physician to make decisions for him. PHYSICAL EXAMINATION: GENERAL: On examination, Mr. Jones is awake and alert, not in acute distress. He is cachectic. VITAL SIGNS: Blood pressure is 108/70, pulse 75, respiratory rate 12, oxygen saturation was 95% on room air. Earlier, he was hypotensive with a blood pressure of 80/57. EYES: No scleral icterus, no conjunctival pallor. ENT: Moist mucosal membranes, no oropharyngeal erythema or exudates. NECK: Supple, nontender, trachea is midline. RESPIRATORY: Accessory muscles of breathing are not active. He has right middle lobe bronchial breathing. CARDIOVASCULAR: S1 and S2 are heard, regular. Peripheral pulses palpable. ABDOMEN: Soft, mild suprapubic tenderness. No guarding, no rigidity. Bowel sounds heard. NEUROLOGIC: Cranial nerves 2 through 12 intact, deep tendon reflexes 2+. MUSCULOSKELETAL: Emaciated. EXTREMITIES: Power is 5/5 in all 4 extremities. SKIN: No rashes or subcutaneous nodules. LYMPHATIC: No cervical lymphadenopathy. PSYCHIATRIC: Normal mood, normal affect. The patient is oriented to person and place, and to time. LABORATORY DATA: Mr. Jones's labs and investigations were reviewed. I reviewed his electrocardiogram, which shows normal sinus rhythm, no ST changes to suggest an acute coronary syndrome. I also reviewed his chest x-ray, which shows right middle lobe infiltrate. He also had CT scan of the chest, abdomen, and pelvis, which showed extensive coronary artery calcification, small right-sided pleural effusion, areas of posterior lung atelectasis, and extensive bladder wall thickening, concerning for bladder neoplasm versus cystitis. He has leukocytosis with 13,400 white cells, of which, 81% are neutrophils, normocytic anemia with hemoglobin 10.1, normal platelet count, normal sodium, normal potassium, elevated blood urea nitrogen of 36, elevated creatinine of 1.56, normal lactic acid, decreased albumin of 2.7, otherwise unremarkable liver profile and normal troponin-I. ASSESSMENT AND PLAN: Mr. Jones is a pleasant 78-year-old gentleman, who was seen at [facility] on September 28, 2018. His problem list includes: 1. Abdominal pain: Etiology is unclear at this time, appears to be secondary to cystitis versus bladder neoplasm. He will be admitted to the hospital for further management. 2. Pneumonia: He also has community-acquired pneumonia. He will be treated with ceftriaxone and azithromycin. 3. Hypertension: He is unable to recall the names of his antihypertensives. We will start him on p.r.n. hydralazine while we try to find out. 4. Urinary bladder wall thickening: Concern regarding cystitis versus malignancy. Emergency room nurse attempts up to introduce a catheter, but his urethra was reportedly too narrow. He is attempting to provide a urine sample and says that he can urinate well. 5. Dehydration: The patient is clinically dehydrated. We will start him on IV fluids. LEVEL OF RISK: High. LEVEL OF COMPLEXITY: High. Job ID: [id number] [facility]
[2018-09-28 17:17] VITALS: BMI 14.5
[2018-09-28] MEDS: Sodium Chloride 0.9% 1,000 ML IV SCH (18:11)
[2018-09-28] MEDS: Nicotine 21 MG PATCH TD SCH (18:11)
[2018-09-28] MEDS: Tamsulosin HCl 0.4 MG CAP PO SCH (20:44)
[2018-09-29 05:57] LABS: #Basophils 0.1 thou/uL (0.0-0.2); #Eosinphils 0.3 thou/uL (0.0-0.7); #Lymphocytes 1.8 thou/uL (1.20-3.40); #Monocytes 0.6 thou/uL (0.11-0.59); #Neutrophils 12.5 thou/uL (1.40-6.50); %Basophils 0.9 % (0.0-1.0); %Eosinophils 1.7 % (0.0-10.0); %Lymphocytes 11.9 % (21.0-51.0); %Monocytes 3.8 % (0.0-10.0); %Neutrophils 81.7 % (42.0-75.0); Hemoglobin 9.4 g/dL (14.0-18.0); Mean Corpuscular HGB CONC 30.1 g/dL (32.0-36.0); Mean Corpuscular Hemoglobin 26.9 pg (27.0-31.0); Mean Corpuscular Volume 89.4 fL (78.0-98.0); Mean Platelet Volume 8.4 fL (7.4-10.4); Platelet Count 238 thou/uL (130-400); RBC Distribution Width 14.9 % (11.5-14.5); Red Blood Cell (RBC) Count 3.49 mill/uL (4.70-6.10); White Blood Cell (WBC) Count 15.3 thou/uL (4.8-10.8)
[2018-09-29 06:13] LABS: Anion Gap 13 mmol/L (10-20); BUN (Urea Nitrogen) 29 mg/dL (8.4-25.7); Calc. Creatinine Clearance 32 mL/min (70-130); Calcium 7.6 mg/dL (7.8-10.44); Carbon Dioxide 13 mmol/L (23-31); Chloride 114 mmol/L (98-107); Estimated GFR-MDRD 51; Glucose 71 mg/dL (83-110); Potassium 3.7 mmol/L (3.5-5.1); Sodium 136 mmol/L (136-145)
[2018-09-29] MEDS: Sodium Chloride 0.9% 1,000 ML IV SCH ×2 (06:29→18:29)
[2018-09-29] MEDS: Amlodipine 10 MG TAB PO SCH (07:42)
[2018-09-29] MEDS: Cyanocobalamin (Vitamin B-12) 1,000 MCG TAB PO SCH (07:42)
[2018-09-29] MEDS: Enoxaparin Sodium 30 MG/0.3 ML SYRINGE SC SCH (07:43)
[2018-09-29] MEDS: cefTRIAXone\\ROCEPHIN 1 GM in Sodium Chloride 0.9% 100 ML IVPB SCH (15:21)
[2018-09-29] MEDS: Azithromycin 500 MG in Sodium Chloride 0.9% 250 ML 250 ML IVPB SCH (15:21)
--- NOTE | 2018-09-29 15:57 | PDOC.PN ---
- Subjective Encounter Start Date: 09/29/18 Encounter Start Time: 10:00 Pt seen for followup re: pneumonia. Feels better. No chest pain or shortness of breath. - Objective Resuscitation Status - Order Detail: 09/28/18 14:19 Resuscitation Status Routine Resuscitation Status: FULL: Full Resuscitation Discussed with: rox DIAMOND Reviewed: Yes Vital Signs & Weight: Vital Signs (12 hours) Temp Pulse Resp BP Pulse Ox 09/29/18 15:00 97.5 F L 87 18 122/67 95 09/29/18 11:00 97.5 F L 91 18 95/53 L 95 09/29/18 07:42 78 09/29/18 07:16 98.0 F 78 18 116/63 93 L Weight Admit Weight 107 lb 4 oz Weight 107 lb 4 oz I&O: 09/28/18 09/29/18 09/30/18 06:59 06:59 06:59 Intake Total 2140 440 Balance 2140 440 Result Diagrams: 09/29/18 04:55 09/29/18 04:55 Additional Labs: Labs reviewed by me Phys Exam - Physical Examination Constitutional: NAD HEENT: moist MMs Neck: supple Respiratory: clear to auscultation bilateral Cardiovascular: RRR Gastrointestinal: soft Neurological: moves all 4 limbs Psychiatric: normal affect Dx/Plan (1) Pneumonia Code(s): J18.9 - PNEUMONIA, UNSPECIFIED ORGANISM Status: Acute Comment: continue antibiotics as below (2) Severe protein-calorie malnutrition Code(s): E43 - UNSPECIFIED SEVERE PROTEIN-CALORIE MALNUTRITION Status: Chronic Comment: appreciate dietitian input - Plan * . Awaiting urology input re: cystitis vs bladder mass Review of Systems - Review of Systems Respiratory: negative: Cough, Shortness of Breath, SOB with Excertion, Pleuritic Pain, Wheezing Cardiovascular: negative: chest pain, palpitations, orthopnea, paroxysmal nocturnal dyspnea, edema, light headedness - Medications/Allergies Allergies/Adverse Reactions: Allergies Allergy/AdvReac Type Severity Reaction Status Date / Time No Known Drug Allergies Allergy Verified 10/19/17 03:37 Medications: Current Medications Acetaminophen (Tylenol) 650 mg PO Q4H PRN PRN Reason: Headache/Fever/Mild Pain (1-3) Amlodipine Besylate (Norvasc) 10 mg PO DAILY [facility] Last Admin: 09/29/18 07:42 Dose: 10 mg Cyanocobalamin (Vitamin B-12) 1,000 mcg PO DAILY [facility] Last Admin: 09/29/18 07:42 Dose: 1,000 mcg Enoxaparin Sodium (Lovenox) 30 mg SC 0900 [facility] Last Admin: 09/29/18 07:43 Dose: 30 mg Hydralazine HCl (Apresoline) 10 mg SLOW IVP Q6H PRN PRN Reason: SBP Greater Than 170 Azithromycin 500 mg/ Sodium (Chloride) 250 mls @ 250 mls/hr IVPB Q24HR [facility] Last Admin: 09/29/18 15:21 Dose: 250 mls Ceftriaxone Sodium 1 gm/ (Sodium Chloride) 100 mls @ 200 mls/hr IVPB Q24HR [facility] Last Admin: 09/29/18 15:21 Dose: 100 mls Sodium Chloride (Normal Saline 0.9%) 1,000 mls @ 70 mls/hr IV .[id number] [facility] Last Admin: 09/29/18 06:29 Dose: 1,000 mls Nicotine (Nicoderm Patch) 21 mg TD Q24HR [facility] Last Admin: 09/28/18 18:11 Dose: 21 mg Senna/Docusate Sodium (Senokot S) 2 tab PO BIDPRN PRN PRN Reason: Constipation Sodium Chloride (Flush - Normal Saline) 10 ml IVF Q12HR [facility] Last Admin: 09/29/18 07:44 Dose: Not Given Sodium Chloride (Flush - Normal Saline) 10 ml IVF PRN PRN PRN Reason: Saline Flush Tamsulosin HCl (Flomax) 0.4 mg PO HS [facility] Last Admin: 09/28/18 20:44 Dose: 0.4 mg
[2018-09-29] MEDS: Nicotine 21 MG PATCH TD SCH (18:25)
[2018-09-29] MEDS: Tamsulosin HCl 0.4 MG CAP PO SCH (20:34)
[2018-09-30 07:20] LABS: #Eosinphils 0.1 thou/uL (0.0-0.7); #Lymphocytes 2.1 thou/uL (1.20-3.40); #Monocytes 0.5 thou/uL (0.11-0.59); #Neutrophils 8.8 thou/uL (1.40-6.50); %Basophils 0.1 % (0.0-1.0); %Eosinophils 1.3 % (0.0-10.0); %Lymphocytes 18.6 % (21.0-51.0); %Monocytes 4.1 % (0.0-10.0); Hemoglobin 9.2 g/dL (14.0-18.0); Mean Corpuscular HGB CONC 31.5 g/dL (32.0-36.0); Mean Corpuscular Hemoglobin 27.1 pg (27.0-31.0); Mean Platelet Volume 8.4 fL (7.4-10.4); Platelet Count 215 thou/uL (130-400); RBC Distribution Width 14.9 % (11.5-14.5); Red Blood Cell (RBC) Count 3.38 mill/uL (4.70-6.10); White Blood Cell (WBC) Count 11.5 thou/uL (4.8-10.8)
[2018-09-30 07:31] LABS: Anion Gap 10 mmol/L (10-20); BUN (Urea Nitrogen) 27 mg/dL (8.4-25.7); Calc. Creatinine Clearance 32 mL/min (70-130); Calcium 7.2 mg/dL (7.8-10.44); Carbon Dioxide 16 mmol/L (23-31); Chloride 111 mmol/L (98-107); Estimated GFR-MDRD 52; Glucose 81 mg/dL (83-110); Potassium 3.5 mmol/L (3.5-5.1); Sodium 133 mmol/L (136-145)
[2018-09-30] MEDS: Amlodipine 10 MG TAB PO SCH (09:14)
[2018-09-30] MEDS: Cyanocobalamin (Vitamin B-12) 1,000 MCG TAB PO SCH (09:14)
[2018-09-30] MEDS: Enoxaparin Sodium 30 MG/0.3 ML SYRINGE SC SCH (09:15)
[2018-09-30] MEDS: Sodium Chloride 0.9% 1,000 ML IV SCH (12:01)
[2018-09-30] MEDS: cefTRIAXone\\ROCEPHIN 1 GM in Sodium Chloride 0.9% 100 ML IVPB SCH (12:03)
--- NOTE | 2018-09-30 13:28 | PDOC.PN ---
- Subjective Encounter Start Date: 09/30/18 Encounter Start Time: 08:40 Pt seen for followup re:pneumonia. Cough+, sputum+ - Objective Resuscitation Status - Order Detail: 09/28/18 14:19 Resuscitation Status Routine Resuscitation Status: FULL: Full Resuscitation Discussed with: rox DIAMOND Reviewed: Yes Vital Signs & Weight: Vital Signs (12 hours) Temp Pulse Resp BP BP Pulse Ox 09/30/18 12:09 97.9 F 82 18 99/53 L 94 L 09/30/18 12:06 110/62 110/62 09/30/18 09:14 86 107/59 L 09/30/18 08:00 98.1 F 86 18 107/59 L 92 L 09/30/18 07:52 98.1 F 86 18 107/59 L 92 L 09/30/18 04:00 98.3 F 82 18 107/58 L 92 L Weight Admit Weight 107 lb 4 oz Weight 107 lb 4 oz I&O: 09/29/18 09/30/18 10/01/18 06:59 06:59 06:59 Intake Total 2140 1710 Balance 2140 1710 Result Diagrams: 09/30/18 07:00 09/30/18 07:00 Additional Labs: Labs reviewed by me Phys Exam - Physical Examination malnourished HEENT: moist MMs Neck: supple Respiratory: clear to auscultation bilateral Cardiovascular: RRR Gastrointestinal: soft Neurological: moves all 4 limbs Psychiatric: normal affect Dx/Plan (1) Pneumonia Code(s): J18.9 - PNEUMONIA, UNSPECIFIED ORGANISM Status: Acute Comment: continue ceftriaxone, azithromycin (2) Severe protein-calorie malnutrition Code(s): E43 - UNSPECIFIED SEVERE PROTEIN-CALORIE MALNUTRITION Status: Chronic Comment: appreciate dietitian input - Plan continue antibiotics, PT/OT, out of bed/ambulate * . Awaiting urology input Review of Systems - Review of Systems Cardiovascular: negative: chest pain, palpitations, orthopnea, paroxysmal nocturnal dyspnea, edema, light headedness Gastrointestinal: negative: Nausea, Vomiting, Abdominal Pain, Diarrhea, Constipation, Melena, Hematochezia - Medications/Allergies Allergies/Adverse Reactions: Allergies Allergy/AdvReac Type Severity Reaction Status Date / Time No Known Drug Allergies Allergy Verified 10/19/17 03:37 Medications: Current Medications Acetaminophen (Tylenol) 650 mg PO Q4H PRN PRN Reason: Headache/Fever/Mild Pain (1-3) Amlodipine Besylate (Norvasc) 10 mg PO DAILY [facility] Last Admin: 09/30/18 09:14 Dose: 10 mg Cyanocobalamin (Vitamin B-12) 1,000 mcg PO DAILY [facility] Last Admin: 09/30/18 09:14 Dose: 1,000 mcg Enoxaparin Sodium (Lovenox) 30 mg SC 0900 [facility] Last Admin: 09/30/18 09:15 Dose: 30 mg Hydralazine HCl (Apresoline) 10 mg SLOW IVP Q6H PRN PRN Reason: SBP Greater Than 170 Azithromycin 500 mg/ Sodium (Chloride) 250 mls @ 250 mls/hr IVPB Q24HR [facility] Last Admin: 09/29/18 15:21 Dose: 250 mls Ceftriaxone Sodium 1 gm/ (Sodium Chloride) 100 mls @ 200 mls/hr IVPB Q24HR [facility] Last Admin: 09/30/18 12:03 Dose: 100 mls Sodium Chloride (Normal Saline 0.9%) 1,000 mls @ 70 mls/hr IV .[id number] [facility] Last Admin: 09/30/18 12:01 Dose: 1,000 mls Nicotine (Nicoderm Patch) 21 mg TD Q24HR [facility] Last Admin: 09/29/18 18:25 Dose: 21 mg Senna/Docusate Sodium (Senokot S) 2 tab PO BIDPRN PRN PRN Reason: Constipation Sodium Chloride (Flush - Normal Saline) 10 ml IVF Q12HR [facility] Last Admin: 09/30/18 09:15 Dose: Not Given Sodium Chloride (Flush - Normal Saline) 10 ml IVF PRN PRN PRN Reason: Saline Flush Tamsulosin HCl (Flomax) 0.4 mg PO HS [facility] Last Admin: 09/29/18 20:34 Dose: 0.4 mg
[2018-09-30] MEDS: Azithromycin 500 MG in Sodium Chloride 0.9% 250 ML 250 ML IVPB SCH (13:55)
[2018-09-30] MEDS: Nicotine 21 MG PATCH TD SCH (16:29)
[2018-09-30] MEDS: Tamsulosin HCl 0.4 MG CAP PO SCH (20:12)
[2018-10-01] MEDS: Sodium Chloride 0.9% 1,000 ML IV SCH ×2 (03:18→14:15)
[2018-10-01 07:02] LABS: #Eosinphils 0.2 thou/uL (0.0-0.7); #Lymphocytes 2.2 thou/uL (1.20-3.40); #Monocytes 0.5 thou/uL (0.11-0.59); #Neutrophils 7.3 thou/uL (1.40-6.50); %Basophils 0.4 % (0.0-1.0); %Lymphocytes 21.4 % (21.0-51.0); %Monocytes 4.5 % (0.0-10.0); %Neutrophils 71.7 % (42.0-75.0); Hemoglobin 9.1 g/dL (14.0-18.0); Mean Corpuscular HGB CONC 31.6 g/dL (32.0-36.0); Mean Corpuscular Hemoglobin 27.6 pg (27.0-31.0); Mean Corpuscular Volume 87.1 fL (78.0-98.0); Mean Platelet Volume 8.5 fL (7.4-10.4); Platelet Count 222 thou/uL (130-400); RBC Distribution Width 15.3 % (11.5-14.5); White Blood Cell (WBC) Count 10.2 thou/uL (4.8-10.8)
[2018-10-01 07:18] LABS: Anion Gap 11 mmol/L (10-20); BUN (Urea Nitrogen) 22 mg/dL (8.4-25.7); Calc. Creatinine Clearance 35 mL/min (70-130); Calcium 7.2 mg/dL (7.8-10.44); Carbon Dioxide 16 mmol/L (23-31); Chloride 111 mmol/L (98-107); Estimated GFR-MDRD 57; Glucose 83 mg/dL (83-110); Potassium 3.6 mmol/L (3.5-5.1); Sodium 134 mmol/L (136-145)
[2018-10-01] MEDS: Amlodipine 10 MG TAB PO SCH (09:03)
[2018-10-01] MEDS: Cyanocobalamin (Vitamin B-12) 1,000 MCG TAB PO SCH (09:03)
[2018-10-01] MEDS: Enoxaparin Sodium 30 MG/0.3 ML SYRINGE SC SCH (09:04)
[2018-10-01] MEDS: cefTRIAXone\\ROCEPHIN 1 GM in Sodium Chloride 0.9% 100 ML IVPB SCH (13:56)
[2018-10-01] MEDS: Azithromycin 500 MG in Sodium Chloride 0.9% 250 ML 250 ML IVPB SCH (14:47)
--- NOTE | 2018-10-01 15:53 | PDOC.PN ---
- Subjective Encounter Start Date: 10/01/18 Encounter Start Time: 15:51 Subjective: admitted with worsening abdominal pain as well as difficulty breathing. -: feeling better. denied urinary symptoms or fever. - Objective Resuscitation Status - Order Detail: 09/28/18 14:19 Resuscitation Status Routine Resuscitation Status: FULL: Full Resuscitation Discussed with: patient Vital Signs & Weight: Vital Signs (12 hours) Temp Pulse Resp BP BP Pulse Ox Pulse Ox 10/01/18 14:04 91 L 10/01/18 11:51 98 F 75 14 114/61 95 10/01/18 09:03 83 130/53 L 10/01/18 07:32 98.0 F 83 18 130/53 L 95 Weight Admit Weight 107 lb 4 oz Weight 107 lb 4 oz I&O: 09/30/18 10/01/18 10/02/18 06:59 06:59 06:59 Intake Total 1710 3435 Balance 1710 3435 Result Diagrams: 10/01/18 06:34 10/01/18 06:34 Phys Exam - Physical Examination chronically ill looking. HEENT: moist MMs Neck: no JVD, supple fair air entry with scattered rhonchi and transmitted sound Cardiovascular: RRR, no significant murmur Gastrointestinal: soft, non-tender, no distention, positive bowel sounds Musculoskeletal: no edema atrophic lower limbs noted Neurological: non-focal, moves all 4 limbs Psychiatric: normal affect, A&O x 3 Dx/Plan (1) NEENA (acute kidney injury) Code(s): N17.9 - ACUTE KIDNEY FAILURE, UNSPECIFIED Status: Acute (2) Metabolic acidosis Code(s): E87.2 - ACIDOSIS Status: Acute (3) Bladder wall thickening Code(s): N32.89 - OTHER SPECIFIED DISORDERS OF BLADDER Status: Acute (4) Physical deconditioning Code(s): R53.81 - OTHER MALAISE Status: Acute (5) Pneumonia Code(s): J18.9 - PNEUMONIA, UNSPECIFIED ORGANISM Status: Acute Comment: continue ceftriaxone, azithromycin (6) Severe protein-calorie malnutrition Code(s): E43 - UNSPECIFIED SEVERE PROTEIN-CALORIE MALNUTRITION Status: Chronic Comment: appreciate dietitian input - Plan Continue antibiotics -: substitutre NS with LR -: Consult PT/OT -: Continue oral supplement -: Start oral steroid and bronchodilators. Repeat BMP in the am. * .
[2018-10-01] MEDS ORDERED: predniSONE 20 MG TAB PO SCH (16:30)
[2018-10-01] MEDS: Lactated Ringer's 1,000 ML IV SCH (16:49)
[2018-10-01] MEDS: Nicotine 21 MG PATCH TD SCH (16:50)
[2018-10-01] MEDS: Tamsulosin HCl 0.4 MG CAP PO SCH (20:48)
--- NOTE | 2018-10-02 00:04 | CON ---
DATE OF CONSULTATION: 10/01/2018 REASON FOR CONSULTATION: Abnormal findings on CT scan. HISTORY OF PRESENT ILLNESS: Mr. Jones is a 78-year-old gentleman with a lifelong history of smoking and also known long-term alcohol use. He presented to the hospital with suprapubic pain. He was noted to have possible pneumonia on chest x-ray and was admitted for further treatment and management. CT scan was performed as part of his workup and this demonstrated posterior bladder wall thickening. The patient denies any gross hematuria. He does state that his urination has been more difficult to control. He states at times he cannot stop the urine from coming out. He is being managed with a diaper at this time. He has never had any urologic surgery in the past. He denies any dysuria. PAST MEDICAL HISTORY: COPD, hypertension. PAST SURGICAL HISTORY: Left hip replacement, cataract surgery, appendectomy. SOCIAL HISTORY: One pack cigarette a day smoker for years. Also drinks alcohol on a daily basis. ALLERGIES: NO KNOWN DRUG ALLERGIES. SOCIAL HISTORY: He has no family he is in contact with. He has a female friend who drives him to appointments. REVIEW OF SYSTEMS: RESPIRATORY: No shortness of breath. CARDIOVASCULAR: Denies any chest pain or palpitations. GASTROINTESTINAL: Denies chronic constipation or diarrhea. GENITOURINARY: Please see history of present illness. PHYSICAL EXAMINATION: VITAL SIGNS: Blood pressure 111/61, pulse 87, respiratory rate 16, O2 saturation 95% on room air. LABORATORY DATA: Hemoglobin 9.1, hematocrit 28.8, white count 10.2, sodium 134, potassium 3.6, chloride 111, CO2 16, BUN 22, creatinine 1.24. Urinalysis not performed during this visit, negative in 11/02. CT scan, extensive vascular calcifications in the coronary arteries, in abdominal aorta, renal vessels, right and left common iliac arteries. The bladder has a posterior bladder wall thickening. IMPRESSION: Mr. Jones is a gentleman with a long smoking history and abnormal findings on CT scan. Urine cytology will be ordered. He will need a visualization of the bladder with cystoscopy. This can be performed as an outpatient if he is discharged prior to being able to get on OR schedule - non emergency.. RECOMMENDATIONS: 1. Cystoscopy for evaluation of bladder, possible TURBT. 2. Urine for cytology. Job ID: [id number] [facility]
[2018-10-02] MEDS: Lactated Ringer's 1,000 ML IV SCH ×2 (07:46→23:01)
[2018-10-02] MEDS: Enoxaparin Sodium 30 MG/0.3 ML SYRINGE SC SCH (07:47)
[2018-10-02] MEDS: Cyanocobalamin (Vitamin B-12) 1,000 MCG TAB PO SCH (07:48)
[2018-10-02] MEDS: Azithromycin 250 MG TAB PO SCH (07:48)
[2018-10-02] MEDS: Amlodipine 10 MG TAB PO SCH (07:48)
[2018-10-02] MEDS: predniSONE 20 MG TAB PO SCH (07:48)
[2018-10-02 09:14] LABS: #Basophils 0.1 thou/uL (0.0-0.2); #Lymphocytes 0.8 thou/uL (1.20-3.40); #Neutrophils 8.9 thou/uL (1.40-6.50); %Basophils 0.5 % (0.0-1.0); %Eosinophils 0.1 % (0.0-10.0); %Lymphocytes 8.2 % (21.0-51.0); %Monocytes 0.4 % (0.0-10.0); %Neutrophils 90.7 % (42.0-75.0); Hemoglobin 10.1 g/dL (14.0-18.0); Mean Corpuscular HGB CONC 31.5 g/dL (32.0-36.0); Mean Corpuscular Hemoglobin 27.5 pg (27.0-31.0); Mean Corpuscular Volume 87.2 fL (78.0-98.0); Mean Platelet Volume 8.6 fL (7.4-10.4); Platelet Count 252 thou/uL (130-400); RBC Distribution Width 15.9 % (11.5-14.5); Red Blood Cell (RBC) Count 3.66 mill/uL (4.70-6.10); White Blood Cell (WBC) Count 9.8 thou/uL (4.8-10.8)
[2018-10-02 09:22] LABS: Anion Gap 12 mmol/L (10-20); BUN (Urea Nitrogen) 19 mg/dL (8.4-25.7); Calc. Creatinine Clearance 36 mL/min (70-130); Calcium 7.8 mg/dL (7.8-10.44); Carbon Dioxide 18 mmol/L (23-31); Chloride 106 mmol/L (98-107); Estimated GFR-MDRD 59; Glucose 180 mg/dL (83-110); Potassium 3.8 mmol/L (3.5-5.1); Sodium 132 mmol/L (136-145)
[2018-10-02] MEDS: cefTRIAXone\\ROCEPHIN 1 GM in Sodium Chloride 0.9% 100 ML IVPB SCH (12:49)
--- NOTE | 2018-10-02 15:15 | PDOC.PN ---
- Subjective Encounter Start Date: 10/02/18 Encounter Start Time: 15:14 Subjective: Feeling better. No fever, SOBB or abdominal pain. -: Present with abdominal pain and was found to have right lumg opacities -: sufggestive of pneumonia. - Objective Resuscitation Status - Order Detail: 09/28/18 14:19 Resuscitation Status Routine Resuscitation Status: FULL: Full Resuscitation Discussed with: patient Vital Signs & Weight: Vital Signs (12 hours) Temp Pulse Resp BP Pulse Ox 10/02/18 11:57 96 10/02/18 11:56 97.6 F 90 20 136/69 98 10/02/18 11:18 84 20 10/02/18 07:48 97 10/02/18 07:00 97.8 F 97 20 138/58 L 94 L 10/02/18 06:55 92 L 10/02/18 06:53 87 20 92 L Weight Admit Weight 107 lb 4 oz Weight 107 lb 4 oz I&O: 10/01/18 10/02/18 10/03/18 06:59 06:59 06:59 Intake Total 3435 1755 480 Balance 3435 1755 480 Result Diagrams: 10/02/18 08:44 10/02/18 08:44 Phys Exam - Physical Examination HEENT: moist MMs, sclera anicteric Neck: no JVD, full ROM fair air entry bilaterally Cardiovascular: RRR, no significant murmur Gastrointestinal: soft, non-tender, no distention, positive bowel sounds Musculoskeletal: no edema, pulses present Neurological: non-focal, moves all 4 limbs Psychiatric: normal affect, A&O x 3 Dx/Plan (1) NEENA (acute kidney injury) Code(s): N17.9 - ACUTE KIDNEY FAILURE, UNSPECIFIED Status: Acute Comment: Improving with IVF (2) Metabolic acidosis Code(s): E87.2 - ACIDOSIS Status: Acute Comment: Improving with subdtitution of NS with RL (3) Bladder wall thickening Code(s): N32.89 - OTHER SPECIFIED DISORDERS OF BLADDER Status: Acute Comment : Seen by Urology (4) Physical deconditioning Code(s): R53.81 - OTHER MALAISE Status: Acute (5) Pneumonia Code(s): J18.9 - PNEUMONIA, UNSPECIFIED ORGANISM Status: Acute Qualifiers: Pneumonia type: due to unspecified organism Laterality: right Lung location: upper lobe of lung Qualified Code(s): J18.1 - Lobar pneumonia, unspecified organism Comment: continue ceftriaxone, azithromycin (6) Severe protein-calorie malnutrition Code(s): E43 - UNSPECIFIED SEVERE PROTEIN-CALORIE MALNUTRITION Status: Chronic Comment: appreciate dietitian input - Plan Continue current treatment -: Continue PT -: For discharge once placement is completed. * .
[2018-10-02] MEDS: Nicotine 21 MG PATCH TD SCH (17:05)
[2018-10-02] MEDS: Tamsulosin HCl 0.4 MG CAP PO SCH (19:58)
[2018-10-03] MEDS: Enoxaparin Sodium 30 MG/0.3 ML SYRINGE SC SCH (08:29)
[2018-10-03] MEDS: Azithromycin 250 MG TAB PO SCH (08:29)
[2018-10-03] MEDS: Amlodipine 10 MG TAB PO SCH (08:29)
[2018-10-03] MEDS: predniSONE 20 MG TAB PO SCH (08:29)
[2018-10-03] MEDS: Cyanocobalamin (Vitamin B-12) 1,000 MCG TAB PO SCH (08:29)
[2018-10-03] MEDS: Lactated Ringer's 1,000 ML IV SCH ×2 (11:43→12:28)
[2018-10-03] MEDS: cefTRIAXone\\ROCEPHIN 1 GM in Sodium Chloride 0.9% 100 ML IVPB SCH (12:28)
--- NOTE | 2018-10-03 15:24 | PDOC.PN ---
- Subjective Encounter Start Date: 10/03/18 Encounter Start Time: 15:23 Subjective: No new problem -: For Cystoscopy on friday. - Objective Resuscitation Status - Order Detail: 09/28/18 14:19 Resuscitation Status Routine Resuscitation Status: FULL: Full Resuscitation Discussed with: patient Vital Signs & Weight: Vital Signs (12 hours) Temp Pulse Resp BP Pulse Ox 10/03/18 10:36 84 20 10/03/18 08:29 70 10/03/18 08:00 93 L 10/03/18 07:29 92 L 10/03/18 07:27 70 20 92 L 10/03/18 07:17 97.3 F L 80 18 119/68 93 L 10/03/18 06:00 97.7 F 96 18 124/66 95 Weight Admit Weight 107 lb 4 oz Weight 107 lb 4 oz I&O: 10/02/18 10/03/18 10/04/18 06:59 06:59 06:59 Intake Total 1755 1680 480 Balance 1755 1680 480 Result Diagrams: 10/02/18 08:44 10/02/18 08:44 Phys Exam - Physical Examination HEENT: PERRLA Neck: no JVD, supple fair air entry bilaterally. No distress Cardiovascular: RRR, no rub Gastrointestinal: soft, non-tender, no distention, positive bowel sounds Musculoskeletal: no edema Wasting of lower limbs Neurological: non-focal, moves all 4 limbs Psychiatric: A&O x 3 Dx/Plan (1) NEENA (acute kidney injury) Code(s): N17.9 - ACUTE KIDNEY FAILURE, UNSPECIFIED Status: Acute Comment: Improving with IVF (2) Metabolic acidosis Code(s): E87.2 - ACIDOSIS Status: Acute Comment: Improving with substitution of NS with RL (3) Bladder wall thickening Code(s): N32.89 - OTHER SPECIFIED DISORDERS OF BLADDER Status: Acute Comment : Seen by Urology. For cystoscopy (4) Physical deconditioning Code(s): R53.81 - OTHER MALAISE Status: Acute (5) Pneumonia Code(s): J18.9 - PNEUMONIA, UNSPECIFIED ORGANISM Status: Acute Qualifiers: Pneumonia type: due to unspecified organism Laterality: right Lung location: upper lobe of lung Qualified Code(s): J18.1 - Lobar pneumonia, unspecified organism Comment: continue ceftriaxone, azithromycin (6) Severe protein-calorie malnutrition Code(s): E43 - UNSPECIFIED SEVERE PROTEIN-CALORIE MALNUTRITION Status: Chronic Comment: Cancer is a concern. Appreciate dietitian input - Plan Coninue IVF -: For NPO on friday midnight -: Cystoscopy on thursday 10/05 morning -: Continue PT/OT * .
[2018-10-03] MEDS: Nicotine 21 MG PATCH TD SCH (17:01)
[2018-10-03] MEDS: Tamsulosin HCl 0.4 MG CAP PO SCH (20:53)
[2018-10-04 07:10] LABS: INR-International Normal Ratio 1.1; PTT 30.5 SEC (22.9-36.1); Prothrombin Time 13.9 SEC (12.0-14.7)
[2018-10-04] MEDS: Cyanocobalamin (Vitamin B-12) 1,000 MCG TAB PO SCH (07:53)
[2018-10-04] MEDS: predniSONE 20 MG TAB PO SCH (07:53)
[2018-10-04] MEDS: Amlodipine 10 MG TAB PO SCH (07:54)
[2018-10-04] MEDS: Azithromycin 250 MG TAB PO SCH (07:54)
[2018-10-04] MEDS: Enoxaparin Sodium 30 MG/0.3 ML SYRINGE SC SCH (07:54)
--- NOTE | 2018-10-04 10:06 | PRG ---
DATE OF SERVICE: 10/04/2018 SUBJECTIVE: The patient is seen and examined at bedside. He is doing quite well. He is getting ready for his cystoscopy tomorrow. His appetite is fair. OBJECTIVE: VITAL SIGNS: Blood pressure is 131/63, pulse is 83, temperature is 97.8, respiratory rate is 18, O2 saturation is 93% on room air. HEENT: His head is atraumatic and normocephalic. Eyes; PERRLA, sclerae are nonicteric. Oral mucosa is slightly dry. NECK: Supple. LUNGS: Clear. HEART: S1, S2 normal. No S3. No S4. ABDOMEN: Soft, nontender. Bowel sounds are present. No organomegaly. EXTREMITIES: No clubbing, cyanosis, or edema. NEUROLOGICAL: He is alert and oriented x4. There are no any motor or sensory deficits present. Cranial nerves are intact. LABORATORY DATA: Labs showed, 1. Bladder wall thickening, scheduled for cystoscopy tomorrow morning. 2. Pneumonia, questionable. 3. Physical deconditioning, acute. 4. Metabolic acidosis. 5. Acute kidney injury, improved. Kidney function is back to normal range. 6. Normocytic anemia. 7. Hyponatremia and hypochloremia, those findings from yesterday. PLAN: Plan is to obtain new set of chemistry and follow up on his cystoscopy findings tomorrow. Continue his amlodipine. Prednisone 40 mg will be decreased to 20. Continue tamsulosin. Continue ceftriaxone and Zithromax. Job ID: [id number]
[2018-10-04] MEDS: Lactated Ringer's 1,000 ML IV SCH (10:15)
[2018-10-04 10:31] LABS: Anion Gap 10 mmol/L (10-20); BUN (Urea Nitrogen) 24 mg/dL (8.4-25.7); Calc. Creatinine Clearance 40 mL/min (70-130); Carbon Dioxide 22 mmol/L (23-31); Chloride 108 mmol/L (98-107); Estimated GFR-MDRD 66; Glucose 74 mg/dL (83-110); Potassium 4.5 mmol/L (3.5-5.1); Sodium 135 mmol/L (136-145)
[2018-10-04] MEDS: cefTRIAXone\\ROCEPHIN 1 GM in Sodium Chloride 0.9% 100 ML IVPB SCH (12:46)
--- NOTE | 2018-10-04 13:16 | RAD ---
FRONTAL VIEW CHEST SERIES: (2 VIEWS SUBMITTED) DATE: 10/04/18 COMPARISON: 09/28/18. INDICATION: Pneumonia. FINDINGS: There is hazy density occupying the mid to inferior right hemithorax and patchy right perihilar opaci ty is present. There is mild pleural based density at the inferior left chest. Cardiac silhouette is accentuated. There is vascular calcification. IMPRESSION: 1. Interval development of prominent degree of opacity involving the mid inferior right hemithorax s uggestive of developing pleural fluid, superimposed upon and partially obscuring a probably right per ihilar pneumonia. 2. Mild volume left pleural fluid. Recommend continued imaging follow-up to resolution. POS: REINA
--- NOTE | 2018-10-04 15:52 | PRG ---
DATE OF SERVICE: 10/04/2018 Mr. Jones has improved in regard to his respiratory status and his renal function. He continues to deny any hematuria. As mentioned in the prior progress note, a CT scan demonstrates concerning findings in the bladder, potentially representing bladder cancer. I discussed with him the need for further evaluation by cystoscopy. He has consented to proceed with cystoscopy and possible transurethral resection of bladder tumor. The procedure, potential limitations, alternatives, and complications have been discussed with him. PLAN: Cystoscopy and possible TURBT. Job ID: [id number]
[2018-10-04] MEDS: Nicotine 21 MG PATCH TD SCH (16:51)
[2018-10-04] MEDS: Tamsulosin HCl 0.4 MG CAP PO SCH (21:10)
[2018-10-05] MEDS: Enoxaparin Sodium 30 MG/0.3 ML SYRINGE SC SCH (07:10)
[2018-10-05] MEDS: Cyanocobalamin (Vitamin B-12) 1,000 MCG TAB PO SCH (08:25)
[2018-10-05] MEDS: Amlodipine 10 MG TAB PO SCH (08:25)
--- NOTE | 2018-10-05 12:26 | OP ---
DATE OF PROCEDURE: 10/05/2018 PREOPERATIVE DIAGNOSIS: Bladder mass on CT. POSTOPERATIVE DIAGNOSIS: Cystoscopy, cystitis. PROCEDURE PERFORMED: Cystoscopy, dilation of urethral meatus. INDICATIONS: Mr. Jones is a 78-year-old gentleman, who was admitted to the hospital and a CT scan was performed as part of his evaluation. CT scan demonstrated thickening of the posterior bladder wall of unclear etiology. The patient presents to the operating room for endoscopic evaluation. DESCRIPTION OF PROCEDURE: The patient was given general anesthesia and IV antibiotics. He was sterilely prepped and draped in the lithotomy position. The scope could not be passed in the urethra due to urethral meatal stenosis. This was dilated with sequential sounds and the cystoscope was passed into the bladder. The bladder appeared normal. There were no mucosal abnormalities. There was debris located in the posterior wall of the bladder consistent, most likely accounting for his findings on CT scan. No tumors or stones. Cystoscope was removed. Pollock catheter was placed. The patient tolerated procedure well, transported from the operating room to the recovery room in stable condition. COMPLICATION: None. ESTIMATED BLOOD LOSS: Less than 5 mL. Job ID: [id number]
[2018-10-05] MEDS: predniSONE 20 MG TAB PO SCH (13:57)
[2018-10-05] MEDS: Nicotine 21 MG PATCH TD SCH (15:10)
[2018-10-05] MEDS ORDERED: Glycopyrrolate 0.2 MG/ML 5 ML SYRINGE ONE (15:32)
[2018-10-05] MEDS ORDERED: PHENYLEPHRINE-NS 100 MCG/ML 10 ML SYRINGE ONE (15:32)
[2018-10-05] MEDS ORDERED: ePHEDrine 50 MG/ML VIAL ONE (15:32)
[2018-10-05] MEDS ORDERED: PROPOFOL 200 MG/20 ML VIAL ONE (15:32)
[2018-10-05] MEDS ORDERED: Rocuronium Bromide 10 MG/ML (10ML VIAL) ONE (15:32)
--- NOTE | 2018-10-05 16:36 | PDOC.PN ---
- Subjective Encounter Start Date: 10/05/18 Encounter Start Time: 08:40 Pt seen for followup re: pneumonia. - Objective Resuscitation Status - Order Detail: 09/28/18 14:19 Resuscitation Status Routine Resuscitation Status: FULL: Full Resuscitation Discussed with: patient LOBO Reviewed: Yes Vital Signs & Weight: Vital Signs (12 hours) Temp Pulse Resp BP Pulse Ox 10/05/18 14:09 83 16 94 L 10/05/18 12:20 97.2 F L 78 18 118/69 95 10/05/18 07:50 97.7 F 77 18 138/55 L 96 10/05/18 07:36 83 16 94 L Weight Admit Weight 107 lb 4 oz Weight 107 lb 4 oz I&O: 10/04/18 10/05/18 10/06/18 06:59 06:59 06:59 Intake Total 1900 1288 Balance 1900 1288 Result Diagrams: 10/02/18 08:44 10/04/18 06:36 Additional Labs: Labs reviewed by me Phys Exam - Physical Examination malnourished HEENT: moist MMs Neck: supple Respiratory: clear to auscultation bilateral Cardiovascular: RRR Gastrointestinal: soft Neurological: moves all 4 limbs Psychiatric: normal affect Deviation from normal: wounds as documented Dx/Plan (1) Pneumonia Code(s): J18.9 - PNEUMONIA, UNSPECIFIED ORGANISM Status: Acute Qualifiers: Pneumonia type: due to unspecified organism Laterality: right Lung location: upper lobe of lung Qualified Code(s): J18.1 - Lobar pneumonia, unspecified organism Comment: Improved, off of antibiotics now (2) Severe protein-calorie malnutrition Code(s): E43 - UNSPECIFIED SEVERE PROTEIN-CALORIE MALNUTRITION Status: Chronic Comment: Appreciate dietitian input - Plan * . Pt awaiting cystoscopy Review of Systems - Review of Systems Cardiovascular: negative: chest pain, palpitations, orthopnea, paroxysmal nocturnal dyspnea, edema, light headedness Gastrointestinal: negative: Nausea, Vomiting, Abdominal Pain, Diarrhea, Constipation, Melena, Hematochezia - Medications/Allergies Allergies/Adverse Reactions: Allergies Allergy/AdvReac Type Severity Reaction Status Date / Time No Known Drug Allergies Allergy Verified 10/19/17 03:37 Medications: Current Medications Acetaminophen (Tylenol) 650 mg PO Q4H PRN PRN Reason: Headache/Fever/Mild Pain (1-3) Last Admin: 09/30/18 20:12 Dose: 650 mg Albuterol/Ipratropium (Duoneb) 3 ml NEB [id number] [facility] Last Admin: 10/05/18 14:09 Dose: 3 ml Amlodipine Besylate (Norvasc) 10 mg PO DAILY [facility] Last Admin: 10/05/18 08:25 Dose: 10 mg Cyanocobalamin (Vitamin B-12) 1,000 mcg PO DAILY [facility] Last Admin: 10/05/18 08:25 Dose: 1,000 mcg Enoxaparin Sodium (Lovenox) 30 mg SC 0900 [facility] Last Admin: 10/05/18 07:10 Dose: Not Given Hydralazine HCl (Apresoline) 10 mg SLOW IVP Q6H PRN PRN Reason: SBP Greater Than 170 Nicotine (Nicoderm Patch) 21 mg TD Q24HR [facility] Last Admin: 10/05/18 15:10 Dose: 21 mg Prednisone (Prednisone) 20 mg PO DAILY [facility] Last Admin: 10/05/18 13:57 Dose: 20 mg Senna/Docusate Sodium (Senokot S) 2 tab PO BIDPRN PRN PRN Reason: Constipation Sodium Chloride (Flush - Normal Saline) 10 ml IVF Q12HR [facility] Last Admin: 10/05/18 10:14 Dose: Not Given Sodium Chloride (Flush - Normal Saline) 10 ml IVF PRN PRN PRN Reason: Saline Flush Tamsulosin HCl (Flomax) 0.4 mg PO HS [facility] Last Admin: 10/04/18 21:10 Dose: 0.4 mg
[2018-10-05] MEDS: Tamsulosin HCl 0.4 MG CAP PO SCH (20:09)
[2018-10-06] MEDS: Amlodipine 10 MG TAB PO SCH (08:12)
[2018-10-06] MEDS: predniSONE 20 MG TAB PO SCH (08:12)
[2018-10-06] MEDS: Cyanocobalamin (Vitamin B-12) 1,000 MCG TAB PO SCH (08:12)
[2018-10-06] MEDS: Enoxaparin Sodium 30 MG/0.3 ML SYRINGE SC SCH (08:13)
--- NOTE | 2018-10-06 13:42 | PDOC.PN ---
- Subjective Encounter Start Date: 10/06/18 Encounter Start Time: 08:40 Pt seen for followup re: pneumonia. Feels better. - Objective Resuscitation Status - Order Detail: 09/28/18 14:19 Resuscitation Status Routine Resuscitation Status: FULL: Full Resuscitation Discussed with: rox DIAMOND Reviewed: Yes Vital Signs & Weight: Vital Signs (12 hours) Temp Pulse Resp BP BP Pulse Ox 10/06/18 10:09 84 16 95 10/06/18 08:12 80 10/06/18 07:14 97.2 F L 80 17 138/69 91 L 10/06/18 06:50 73 16 97 10/06/18 04:52 94 L 10/06/18 04:00 98.0 F 72 16 146/73 H 92 L Weight Admit Weight 107 lb 4 oz Weight 107 lb 4 oz I&O: 10/05/18 10/06/18 10/07/18 06:59 06:59 06:59 Intake Total 1288 1210 Output Total 1250 Balance 1288 -40 Result Diagrams: 10/02/18 08:44 10/04/18 06:36 Additional Labs: labs reviewed by me Phys Exam - Physical Examination cachectic HEENT: moist MMs Neck: supple Respiratory: clear to auscultation bilateral Cardiovascular: RRR Gastrointestinal: soft Neurological: moves all 4 limbs Psychiatric: normal affect Dx/Plan (1) Pneumonia Code(s): J18.9 - PNEUMONIA, UNSPECIFIED ORGANISM Status: Acute Qualifiers: Pneumonia type: due to unspecified organism Laterality: right Lung location: upper lobe of lung Qualified Code(s): J18.1 - Lobar pneumonia, unspecified organism Comment: Improved (2) Severe protein-calorie malnutrition Code(s): E43 - UNSPECIFIED SEVERE PROTEIN-CALORIE MALNUTRITION Status: Chronic Comment: Appreciate dietitian input - Plan * . Needs discharge planning. Pt had cystoscopy yesterday, had urethral dilatation. Review of Systems - Review of Systems Respiratory: negative: Cough, Shortness of Breath, SOB with Excertion, Pleuritic Pain, Wheezing Cardiovascular: negative: chest pain, palpitations, orthopnea, paroxysmal nocturnal dyspnea, edema, light headedness - Medications/Allergies Allergies/Adverse Reactions: Allergies Allergy/AdvReac Type Severity Reaction Status Date / Time No Known Drug Allergies Allergy Verified 10/19/17 03:37 Medications: Current Medications Acetaminophen (Tylenol) 650 mg PO Q4H PRN PRN Reason: Headache/Fever/Mild Pain (1-3) Last Admin: 09/30/18 20:12 Dose: 650 mg Albuterol/Ipratropium (Duoneb) 3 ml NEB [id number] [facility] Last Admin: 10/06/18 10:09 Dose: 3 ml Amlodipine Besylate (Norvasc) 10 mg PO DAILY [facility] Last Admin: 10/06/18 08:12 Dose: 10 mg Cyanocobalamin (Vitamin B-12) 1,000 mcg PO DAILY [facility] Last Admin: 10/06/18 08:12 Dose: 1,000 mcg Enoxaparin Sodium (Lovenox) 30 mg SC 0900 [facility] Last Admin: 10/06/18 08:13 Dose: 30 mg Hydralazine HCl (Apresoline) 10 mg SLOW IVP Q6H PRN PRN Reason: SBP Greater Than 170 Nicotine (Nicoderm Patch) 21 mg TD Q24HR [facility] Last Admin: 10/05/18 15:10 Dose: 21 mg Prednisone (Prednisone) 20 mg PO DAILY [facility] Last Admin: 10/06/18 08:12 Dose: 20 mg Senna/Docusate Sodium (Senokot S) 2 tab PO BIDPRN PRN PRN Reason: Constipation Sodium Chloride (Flush - Normal Saline) 10 ml IVF Q12HR [facility] Last Admin: 10/06/18 10:29 Dose: Not Given Sodium Chloride (Flush - Normal Saline) 10 ml IVF PRN PRN PRN Reason: Saline Flush Tamsulosin HCl (Flomax) 0.4 mg PO HS [facility] Last Admin: 10/05/18 20:09 Dose: 0.4 mg
[2018-10-06] MEDS: Nicotine 21 MG PATCH TD SCH (18:52)
[2018-10-06] MEDS: Tamsulosin HCl 0.4 MG CAP PO SCH (21:09)
[2018-10-07] MEDS: Enoxaparin Sodium 30 MG/0.3 ML SYRINGE SC SCH (08:22)
[2018-10-07] MEDS: Cyanocobalamin (Vitamin B-12) 1,000 MCG TAB PO SCH (08:23)
[2018-10-07] MEDS: predniSONE 20 MG TAB PO SCH (08:23)
[2018-10-07] MEDS: Amlodipine 10 MG TAB PO SCH (08:23)
--- NOTE | 2018-10-07 12:45 | PDOC.PN ---
- Subjective Encounter Start Date: 10/07/18 Encounter Start Time: 09:20 Pt seen for followup re: physical deconditioning. No complaints today. - Objective Resuscitation Status - Order Detail: 09/28/18 14:19 Resuscitation Status Routine Resuscitation Status: FULL: Full Resuscitation Discussed with: rox DIAMOND Reviewed: Yes Vital Signs & Weight: Vital Signs (12 hours) Temp Pulse Resp BP BP Pulse Ox 10/07/18 10:45 85 16 10/07/18 08:23 75 139/72 92 L 10/07/18 07:12 98 F 75 19 139/72 92 L 10/07/18 07:10 92 L 10/07/18 07:07 75 16 92 L Weight Admit Weight 107 lb 4 oz Weight 107 lb 4 oz I&O: 10/06/18 10/07/18 10/08/18 06:59 06:59 06:59 Intake Total 1210 720 Output Total 1250 Balance -40 720 Result Diagrams: 10/02/18 08:44 10/04/18 06:36 Additional Labs: labs reviewed by me Phys Exam - Physical Examination malnourished HEENT: moist MMs Neck: supple Respiratory: clear to auscultation bilateral Cardiovascular: RRR Gastrointestinal: soft Neurological: moves all 4 limbs Psychiatric: normal affect Dx/Plan (1) Physical deconditioning Code(s): R53.81 - OTHER MALAISE Status: Acute Comment: Inpt Rehab vs SNU (2) Severe protein-calorie malnutrition Code(s): E43 - UNSPECIFIED SEVERE PROTEIN-CALORIE MALNUTRITION Status: Chronic Comment: Appreciate dietitian input (3) Pneumonia Code(s): J18.9 - PNEUMONIA, UNSPECIFIED ORGANISM Status: Resolved Qualifiers: Pneumonia type: due to unspecified organism Laterality: right Lung location: upper lobe of lung Qualified Code(s): J18.1 - Lobar pneumonia, unspecified organism - Plan * . Review of Systems - Review of Systems Respiratory: negative: Cough, Shortness of Breath, SOB with Excertion, Pleuritic Pain, Wheezing Cardiovascular: negative: chest pain, palpitations, orthopnea, paroxysmal nocturnal dyspnea, edema, light headedness - Medications/Allergies Allergies/Adverse Reactions: Allergies Allergy/AdvReac Type Severity Reaction Status Date / Time No Known Drug Allergies Allergy Verified 10/19/17 03:37 Medications: Current Medications Acetaminophen (Tylenol) 650 mg PO Q4H PRN PRN Reason: Headache/Fever/Mild Pain (1-3) Last Admin: 09/30/18 20:12 Dose: 650 mg Albuterol/Ipratropium (Duoneb) 3 ml NEB [id number] [facility] Last Admin: 10/07/18 10:45 Dose: 3 ml Amlodipine Besylate (Norvasc) 10 mg PO DAILY [facility] Last Admin: 10/07/18 08:23 Dose: 10 mg Cyanocobalamin (Vitamin B-12) 1,000 mcg PO DAILY [facility] Last Admin: 10/07/18 08:23 Dose: 1,000 mcg Enoxaparin Sodium (Lovenox) 30 mg SC 0900 [facility] Last Admin: 10/07/18 08:22 Dose: 30 mg Hydralazine HCl (Apresoline) 10 mg SLOW IVP Q6H PRN PRN Reason: SBP Greater Than 170 Nicotine (Nicoderm Patch) 21 mg TD Q24HR [facility] Last Admin: 10/06/18 18:52 Dose: Not Given Prednisone (Prednisone) 20 mg PO DAILY [facility] Last Admin: 10/07/18 08:23 Dose: 20 mg Senna/Docusate Sodium (Senokot S) 2 tab PO BIDPRN PRN PRN Reason: Constipation Sodium Chloride (Flush - Normal Saline) 10 ml IVF Q12HR [facility] Last Admin: 10/07/18 08:23 Dose: Not Given Sodium Chloride (Flush - Normal Saline) 10 ml IVF PRN PRN PRN Reason: Saline Flush Tamsulosin HCl (Flomax) 0.4 mg PO HS [facility] Last Admin: 10/06/18 21:09 Dose: 0.4 mg
[2018-10-07] MEDS: Nicotine 21 MG PATCH TD SCH (16:01)
[2018-10-07] MEDS: Tamsulosin HCl 0.4 MG CAP PO SCH (19:51)
[2018-10-08] MEDS: predniSONE 20 MG TAB PO SCH (08:48)
[2018-10-08] MEDS: Amlodipine 10 MG TAB PO SCH (08:48)
[2018-10-08] MEDS: Enoxaparin Sodium 30 MG/0.3 ML SYRINGE SC SCH (08:48)
[2018-10-08] MEDS: Cyanocobalamin (Vitamin B-12) 1,000 MCG TAB PO SCH (08:48)
--- NOTE | 2018-10-08 13:42 | PDOC.PN ---
- Subjective Encounter Start Date: 10/08/18 Encounter Start Time: 09:00 Pt seen for followup re: physical deconditioning. No complaints today. - Objective Resuscitation Status - Order Detail: 09/28/18 14:19 Resuscitation Status Routine Resuscitation Status: FULL: Full Resuscitation Discussed with: rox DIAMOND Reviewed: Yes Vital Signs & Weight: Vital Signs (12 hours) Temp Pulse Resp BP Pulse Ox 10/08/18 13:31 80 16 94 L 10/08/18 11:56 98.1 F 80 16 118/66 93 L 10/08/18 09:33 78 18 93 L 10/08/18 08:48 78 10/08/18 08:00 92 L 10/08/18 07:28 97.5 F L 78 16 118/55 L 94 L 10/08/18 06:43 82 16 95 Weight Admit Weight 107 lb 4 oz Weight 107 lb 4 oz I&O: 10/07/18 10/08/18 10/09/18 06:59 06:59 06:59 Intake Total 720 1200 Balance 720 1200 Result Diagrams: 10/02/18 08:44 10/04/18 06:36 Additional Labs: labs reviewed by me Phys Exam - Physical Examination malnourished HEENT: moist MMs Neck: supple Respiratory: clear to auscultation bilateral Cardiovascular: RRR Gastrointestinal: soft Neurological: moves all 4 limbs Psychiatric: normal affect Dx/Plan (1) Physical deconditioning Code(s): R53.81 - OTHER MALAISE Status: Acute Comment: awaiting Inpt rehab bed (2) Severe protein-calorie malnutrition Code(s): E43 - UNSPECIFIED SEVERE PROTEIN-CALORIE MALNUTRITION Status: Chronic Comment: continue Ensure Enlive BID (3) Pneumonia Code(s): J18.9 - PNEUMONIA, UNSPECIFIED ORGANISM Status: Resolved Qualifiers: Pneumonia type: due to unspecified organism Laterality: right Lung location: upper lobe of lung Qualified Code(s): J18.1 - Lobar pneumonia, unspecified organism - Plan * . Review of Systems - Review of Systems Respiratory: negative: Cough, Shortness of Breath, SOB with Excertion, Pleuritic Pain, Wheezing Cardiovascular: negative: chest pain, palpitations, orthopnea, paroxysmal nocturnal dyspnea, edema, light headedness - Medications/Allergies Allergies/Adverse Reactions: Allergies Allergy/AdvReac Type Severity Reaction Status Date / Time No Known Drug Allergies Allergy Verified 10/19/17 03:37 Medications: Current Medications Acetaminophen (Tylenol) 650 mg PO Q4H PRN PRN Reason: Headache/Fever/Mild Pain (1-3) Last Admin: 09/30/18 20:12 Dose: 650 mg Albuterol/Ipratropium (Duoneb) 3 ml NEB [id number] [facility] Last Admin: 10/08/18 13:31 Dose: 3 ml Amlodipine Besylate (Norvasc) 10 mg PO DAILY [facility] Last Admin: 10/08/18 08:48 Dose: 10 mg Cyanocobalamin (Vitamin B-12) 1,000 mcg PO DAILY [facility] Last Admin: 10/08/18 08:48 Dose: 1,000 mcg Enoxaparin Sodium (Lovenox) 30 mg SC 0900 [facility] Last Admin: 10/08/18 08:48 Dose: 30 mg Hydralazine HCl (Apresoline) 10 mg SLOW IVP Q6H PRN PRN Reason: SBP Greater Than 170 Nicotine (Nicoderm Patch) 21 mg TD Q24HR [facility] Last Admin: 10/07/18 16:01 Dose: 21 mg Prednisone (Prednisone) 20 mg PO DAILY [facility] Last Admin: 10/08/18 08:48 Dose: 20 mg Senna/Docusate Sodium (Senokot S) 2 tab PO BIDPRN PRN PRN Reason: Constipation Sodium Chloride (Flush - Normal Saline) 10 ml IVF Q12HR [facility] Last Admin: 10/08/18 08:48 Dose: Not Given Sodium Chloride (Flush - Normal Saline) 10 ml IVF PRN PRN PRN Reason: Saline Flush Tamsulosin HCl (Flomax) 0.4 mg PO HS [facility] Last Admin: 10/07/18 19:51 Dose: 0.4 mg
[2018-10-08] MEDS: Nicotine 21 MG PATCH TD SCH (17:38)
[2018-10-08] MEDS: Tamsulosin HCl 0.4 MG CAP PO SCH (21:00)
[2018-10-09] MEDS: Cyanocobalamin (Vitamin B-12) 1,000 MCG TAB PO SCH (08:41)
[2018-10-09] MEDS: Amlodipine 10 MG TAB PO SCH (08:41)
[2018-10-09] MEDS: predniSONE 20 MG TAB PO SCH (08:42)
[2018-10-09] MEDS: Enoxaparin Sodium 30 MG/0.3 ML SYRINGE SC SCH (08:42)
[2018-10-09 11:41] VITALS: BP 111/51; TEMP 98.1
--- NOTE | 2018-10-09 12:14 | DIS ---
DATE OF ADMISSION: 09/28/2018 DATE OF DISCHARGE: 10/08/2018 PRIMARY CARE PROVIDER: Unknown. DISCHARGE DIAGNOSES: 1. Acute kidney injury. 2. Physical deconditioning. 3. Metabolic acidosis. 4. Hyponatremia. 5. Pneumonia, suspected. 6. Urethral meatal stenosis. CONSULTATIONS DURING THIS HOSPITALIZATION: Urology, Dr. Yuniel Harvey. CONDITION OF PATIENT ON THE DAY OF DISCHARGE: Stable. I assessed Mr. Jones on the day of discharge. He denies any chest pain or shortness of breath. Vital signs are stable. S1 and S2 are heard, regular. Lungs are clear to auscultation bilaterally. DISCHARGE MEDICATIONS: 1. Amlodipine 10 mg daily. 2. Vitamin B12 1000 mcg daily. 3. Nicotine 21 mg patch daily. 4. Flomax 0.4 mg at bedtime. 5. DuoNeb p.r.n. 6. Senakot-S p.r.n. HOSPITAL COURSE: Mr. Jones is a pleasant 78-year-old gentleman, who was admitted to [facility] on September 28, 2018, for abdominal pain secondary to cystitis versus bladder spasm and pneumonia. He was treated with intravenous antibiotics. He was seen by Urology Service because there was concern regarding cystitis versus urinary bladder mass. He underwent cystoscopy on October 05, 2018. He was found to have urethral meatal stenosis and underwent dilatation. There was debris in the posterior wall of the bladder, most likely accounting for his findings on CT scan. Mr. Jones was also physically deconditioned. He was evaluated by Therapy Services. He is being discharged to [facility] for inpatient rehab. DISCHARGE DESTINATION: [facility]. Total amount of time spent coordinating this discharge, 33 minutes. Job ID: [id number] [id number]
== END 2018-10-09 14:20 | DRG 682 ==
LOC: ERS 09:52 → INTOOBSV 13:50 → OBSVTOIN 13:50 → ERHOLD 13:50 → T4-A 16:46
PROVIDERS: ADMIT Internal Medicine Nephrology; ATTEND Internal Medicine
PROC: 0TJB8ZZ Inspection of Bladder, Via Natural or Artificial Opening Endoscopic (ICD-10-PCS; principal; 2018-10-05)
PROC: 0T7D7ZZ Dilation of Urethra, Via Natural or Artificial Opening (ICD-10-PCS; 2018-10-05)
DX: N17.9 Acute kidney failure, unspecified (principal); E43 Unspecified severe protein-calorie malnutrition; J18.1 Lobar pneumonia, unspecified organism; Z68.1 Body mass index [BMI] 19.9 or less, adult; E87.2 Acidosis; J44.0 Chronic obstructive pulmonary disease with (acute) lower respiratory infection; E87.1 Hypo-osmolality and hyponatremia; N30.90 Cystitis, unspecified without hematuria; N35.911 Unspecified urethral stricture, male, meatal; E86.0 Dehydration; D64.9 Anemia, unspecified; I10 Essential (primary) hypertension; E87.8 Other disorders of electrolyte and fluid balance, not elsewhere classified; F17.210 Nicotine dependence, cigarettes, uncomplicated
CPT/HCPCS: 36415; 71045; 71260; 74177; 80048; 80053; 83605; 84484; 85025; 85610; 85730; 87040; 88112; 90715; 93005; 94640; 96361; 96365; 96366; 96367; J0456; J0696; J1650; J2704; J3490; J7050; J7620

== ENCOUNTER 2020-12-11 13:54 | Inpatient (IN) | payer MEDICARE ==
[2020-12-11] MEDS ORDERED: Cefepime 2 GM VIAL ONE (15:04)
[2020-12-11 15:10] LABS: Hemoglobin 13.6 g/dL (14.0-18.0); Red Blood Cell (RBC) Count 4.32 mill/uL (4.70-6.10); White Blood Cell (WBC) Count 9.4 thou/uL (4.8-10.8)
[2020-12-11 15:11] LABS: #Eosinphils 0.1 thou/uL (0.0-0.7); #Lymphocytes 1.7 thou/uL (1.20-3.40); #Monocytes 0.7 thou/uL (0.11-0.59); #Neutrophils 6.9 thou/uL (1.40-6.50); %Eosinophils 0.9 % (0.0-10.0); %Monocytes 7.8 % (0.0-10.0); %Neutrophils 73.3 % (42.0-75.0); Mean Corpuscular Hemoglobin 31.5 pg (27.0-31.0); Mean Corpuscular Volume 98.3 fL (78.0-98.0); Mean Platelet Volume 9.4 fL (7.4-10.4); Platelet Count 169 thou/uL (130-400); RBC Distribution Width 14.5 % (11.5-14.5)
[2020-12-11 15:38] LABS: ALT (SGPT) 17 U/L (8-55); AST (SGOT) 30 U/L (5-34); Albumin 3.3 g/dL (3.4-4.8); Alkaline Phosphatase 89 U/L (40-110); Anion Gap 14 mmol/L (10-20); BUN (Urea Nitrogen) 30 mg/dL (8.4-25.7); Bilirubin, Total 0.6 mg/dL (0.2-1.2); CK (CPK) 169 U/L (30-200); Calc. Creatinine Clearance 0 mL/min (70-130); Calcium 8.8 mg/dL (7.8-10.44); Carbon Dioxide 21 mmol/L (23-31); Chloride 113 mmol/L (98-107); Globulin 3.2 g/dL (2.4-3.5); Glucose 115 mg/dL (83-110); Lipase 29 U/L (8-78); Potassium 4.5 mmol/L (3.5-5.1); Protein, Total 6.5 g/dL (5.8-8.1); Sodium 143 mmol/L (136-145)
[2020-12-11] MEDS ORDERED: Magnesium 2 GM/50 ML BAG (IN WATER) ONE (16:03)
[2020-12-11] MEDS ORDERED: Digoxin 0.5 MG/2 ML AMP ONE (16:03)
[2020-12-11] MEDS ORDERED: Vancomycin 1 GM/200 ML BAG ONE (16:14)
[2020-12-11] MEDS ORDERED: Digoxin 0.5 MG/2 ML AMP SLOW IVP SCH (16:30)
[2020-12-11] MEDS ORDERED: Ondansetron ODT 4 MG TAB PO PRN (17:26)
[2020-12-11] MEDS ORDERED: Ondansetron PF 4 MG/2 ML Vial IVP PRN (17:26)
[2020-12-11] MEDS ORDERED: HYDROcodone/Acetaminophen 5/325 mg Tablet PO PRN (17:26)
[2020-12-11] MEDS ORDERED: Acetaminophen 325 MG TAB PO PRN (17:26)
[2020-12-11] MEDS ORDERED: Sodium Chloride 0.9% 1,000 ML IV SCH (17:30)
[2020-12-11] MEDS ORDERED: Pharmacy to Dose VANC AND CEFEPIME IVPB PRN (17:37)
[2020-12-11 18:16] LABS: INR-International Normal Ratio 1.2; Prothrombin Time 15.7 sec (12.0-14.7)
[2020-12-11 18:29] LABS: Lactic Acid 1.6 mmol/L (0.5-2.2)
[2020-12-11] MEDS ORDERED: Albuterol Sulfate 1.25 MG/3 ML NEB ONE (19:15)
[2020-12-11] MEDS ORDERED: methylPREDNISolone Sod Succ/PF 125 MG/2 ML VIAL ONE (19:15)
[2020-12-11] MEDS ORDERED: Furosemide 20 MG/2 ML VIAL ONE (19:17)
[2020-12-11] MEDS ORDERED: Furosemide 40 MG/4 ML VIAL ONE (19:35)
[2020-12-11 20:56] LABS: SARS-CoV-2 NAA Rapid Test Not Detected (NotDetected)
[2020-12-11] MEDS ORDERED: Vancomycin 1 GM in Premix Bag 1 BAG IVPB SCH (21:00)
[2020-12-11 21:59] VITALS: BMI 17.2
[2020-12-11] MEDS ORDERED: Amiodarone 150 MG, Admixture Fee 1 EACH in Dextrose 5% in Water 100 ML IVPB SCH (23:59)
[2020-12-12 00:50] LABS: Creatinine, Urine Less than 20.00 mg/dL (63-166); Sodium, Urine 136 mmol/L (Not Available)
[2020-12-12] MEDS ORDERED: Cefepime 1 GM in Sodium Chloride 0.9% 100 ML IVPB SCH (03:00)
[2020-12-12 04:28] LABS: #Lymphocytes 0.6 thou/uL (1.20-3.40); #Monocytes 0.1 thou/uL (0.11-0.59); #Neutrophils 7.9 thou/uL (1.40-6.50); %Basophils 0.1 % (0.0-1.0); %Lymphocytes 6.5 % (21.0-51.0); %Monocytes 0.8 % (0.0-10.0); %Neutrophils 92.5 % (42.0-75.0); Mean Corpuscular Hemoglobin 32.4 pg (27.0-31.0); Mean Corpuscular Volume 98.2 fL (78.0-98.0); Mean Platelet Volume 9.1 fL (7.4-10.4); Platelet Count 146 thou/uL (130-400); RBC Distribution Width 14.2 % (11.5-14.5); Red Blood Cell (RBC) Count 4.32 mill/uL (4.70-6.10); White Blood Cell (WBC) Count 8.6 thou/uL (4.8-10.8)
[2020-12-12 04:42] LABS: Anion Gap 14 mmol/L (10-20); Anion Gap 15 mmol/L (10-20); BUN (Urea Nitrogen) 26 mg/dL (8.4-25.7); BUN (Urea Nitrogen) 29 mg/dL (8.4-25.7); Calc. Creatinine Clearance 34 mL/min (70-130); Calc. Creatinine Clearance 35 mL/min (70-130); Calcium 8.9 mg/dL (7.8-10.44); Carbon Dioxide 22 mmol/L (23-31); Carbon Dioxide 24 mmol/L (23-31); Chloride 107 mmol/L (98-107); Glucose 135 mg/dL (83-110); Glucose 136 mg/dL (83-110); Magnesium 2.2 mg/dL (1.6-2.6); Potassium 3.9 mmol/L (3.5-5.1); Sodium 140 mmol/L (136-145); Sodium 141 mmol/L (136-145)
[2020-12-12] MEDS: Metoprolol Tartrate 25 MG TAB PO SCH ×3 (09:35→21:57)
[2020-12-12 15:26] LABS: Fluid, Triglycerides 13 mg/dL (Not Available); Pleural Fluid, Amylase Less than 30 U/L (Not Available); Pleural Fluid, Glucose 140 mg/dL; Pleural Fluid, LDH 101 U/L (Not Available); Pleural Fluid, Protein 2.2 g/dL
[2020-12-12] MEDS: Cefepime 1 GM in Sodium Chloride 0.9% 100 ML IVPB SCH (16:33)
[2020-12-12] MEDS: Vancomycin HCl 750 MG in Sodium Chloride 0.9% 250 ML 250 ML IVPB SCH (17:38)
[2020-12-13 04:09] LABS: #Lymphocytes 1.5 thou/uL (1.20-3.40); #Monocytes 0.8 thou/uL (0.11-0.59); #Neutrophils 9.4 thou/uL (1.40-6.50); %Basophils 0.1 % (0.0-1.0); %Eosinophils 0.1 % (0.0-10.0); %Lymphocytes 12.4 % (21.0-51.0); %Monocytes 6.8 % (0.0-10.0); %Neutrophils 80.6 % (42.0-75.0); Hemoglobin 12.4 g/dL (14.0-18.0); Mean Corpuscular HGB CONC 32.1 g/dL (32.0-36.0); Mean Corpuscular Hemoglobin 31.5 pg (27.0-31.0); Mean Corpuscular Volume 98.3 fL (78.0-98.0); Platelet Count 160 thou/uL (130-400); RBC Distribution Width 14.3 % (11.5-14.5); Red Blood Cell (RBC) Count 3.94 mill/uL (4.70-6.10); White Blood Cell (WBC) Count 11.7 thou/uL (4.8-10.8)
[2020-12-13 04:32] LABS: Anion Gap 14 mmol/L (10-20); BUN (Urea Nitrogen) 42 mg/dL (8.4-25.7); Calc. Creatinine Clearance 29 mL/min (70-130); Calcium 8.6 mg/dL (7.8-10.44); Carbon Dioxide 24 mmol/L (23-31); Chloride 104 mmol/L (98-107); Glucose 88 mg/dL (83-110); Phosphorus 3.2 mg/dL (2.3-4.7); Potassium 3.9 mmol/L (3.5-5.1); Sodium 138 mmol/L (136-145)
[2020-12-13] MEDS: Multivit, Therapeutic 1 TAB PO SCH (08:31)
[2020-12-13] MEDS: Folic Acid 1 MG TAB PO SCH (08:31)
[2020-12-13] MEDS: Thiamine 100 MG TAB PO SCH (08:31)
[2020-12-13] MEDS: Cyanocobalamin (Vitamin B-12) 1,000 MCG TAB PO SCH (08:31)
[2020-12-13] MEDS: Metoprolol Tartrate 25 MG TAB PO SCH ×2 (08:31→21:41)
[2020-12-13 14:11] LABS: Fluid, pH - Pleural Fld Greater than 7.50 (7.60 - 7.66)
[2020-12-13] MEDS: Cefepime 1 GM in Sodium Chloride 0.9% 100 ML IVPB SCH (14:49)
[2020-12-13] MEDS: Vancomycin HCl 750 MG in Sodium Chloride 0.9% 250 ML 250 ML IVPB SCH (15:13)
[2020-12-13 15:25] LABS: Vancomycin, Trough 9.2 ug/mL
[2020-12-13] MEDS ORDERED: Vancomycin HCl 500 MG in Sodium Chloride 0.9% 100 ML IVPB SCH (16:45)
[2020-12-13] MEDS: Mometasone 100 MCG/Formoterol 5 MCG 120 PUFF INHALER INH SCH (19:10)
[2020-12-13 21:27] LABS: RBC Count-Automated (BF) 73 /cu.mm; WBC/Nucleated-Auto (BF) 311 uL
[2020-12-13 21:30] LABS: BF Color Yellow; Body Fluid Source Pleural Fluid; Clarity Hazy (Clear); Tube # 1
[2020-12-13 22:05] LABS: BF Segmented Neutrophils 26 %; Cell Count Non Hematic 36 %; Lymphocytes 38 %
[2020-12-14] MEDS: Vancomycin HCl 500 MG in Sodium Chloride 0.9% 100 ML IVPB SCH ×2 (03:15→16:35)
[2020-12-14 03:46] LABS: #Eosinphils 0.1 thou/uL (0.0-0.7); #Lymphocytes 1.8 thou/uL (1.20-3.40); #Monocytes 0.7 thou/uL (0.11-0.59); #Neutrophils 6.1 thou/uL (1.40-6.50); %Basophils 0.1 % (0.0-1.0); %Eosinophils 0.8 % (0.0-10.0); %Lymphocytes 20.7 % (21.0-51.0); %Monocytes 7.7 % (0.0-10.0); %Neutrophils 70.7 % (42.0-75.0); Hemoglobin 12.3 g/dL (14.0-18.0); Mean Corpuscular HGB CONC 33.1 g/dL (32.0-36.0); Mean Corpuscular Hemoglobin 32.5 pg (27.0-31.0); Mean Corpuscular Volume 98.2 fL (78.0-98.0); Mean Platelet Volume 9.3 fL (7.4-10.4); Platelet Count 154 thou/uL (130-400); RBC Distribution Width 14.2 % (11.5-14.5); Red Blood Cell (RBC) Count 3.78 mill/uL (4.70-6.10); White Blood Cell (WBC) Count 8.6 thou/uL (4.8-10.8)
[2020-12-14 04:26] LABS: ALT (SGPT) 26 U/L (8-55); AST (SGOT) 32 U/L (5-34); Alkaline Phosphatase 75 U/L (40-110); Anion Gap 12 mmol/L (10-20); BUN (Urea Nitrogen) 51 mg/dL (8.4-25.7); Bilirubin, Total 0.4 mg/dL (0.2-1.2); Calc. Creatinine Clearance 32 mL/min (70-130); Calcium 8.1 mg/dL (7.8-10.44); Carbon Dioxide 23 mmol/L (23-31); Chloride 102 mmol/L (98-107); Glucose 91 mg/dL (83-110); Potassium 4.4 mmol/L (3.5-5.1); Sodium 133 mmol/L (136-145)
[2020-12-14] MEDS: Mometasone 100 MCG/Formoterol 5 MCG 120 PUFF INHALER INH SCH ×2 (07:50→18:51)
[2020-12-14] MEDS: Folic Acid 1 MG TAB PO SCH (08:06)
[2020-12-14] MEDS: Cyanocobalamin (Vitamin B-12) 1,000 MCG TAB PO SCH (08:06)
[2020-12-14] MEDS: Multivit, Therapeutic 1 TAB PO SCH (08:06)
[2020-12-14] MEDS: Aspirin 81 mg Enteric Coated Tablet PO SCH (08:06)
[2020-12-14] MEDS: Thiamine 100 MG TAB PO SCH (08:06)
[2020-12-14] MEDS: Saccharomyces boulardii 250 MG CAP PO SCH (08:06)
[2020-12-14] MEDS: Metoprolol Tartrate 25 MG TAB PO SCH ×2 (08:08→20:58)
[2020-12-14] MEDS ORDERED: Magnesium Sulfate 3 GM in Sodium Chloride 0.9% 100 ML IVPB SCH (10:00)
[2020-12-14] MEDS ORDERED: Furosemide 100 MG/10 ML VIAL SLOW IVP SCH (10:00)
[2020-12-14 10:29] LABS: Bacteria/HPF None Seen HPF (None Seen); Bilirubin Negative (Negative); Blood, Urine Negative (Negative); Clarity Clear (Clear); Glucose, Urine (Dipstick) Normal (Negative); Ketone, Urine Negative (Negative); Leukocyte 250 Leu/uL (Negative); Nitrite Negative (Negative); Protein, Urine (Dipstick) 10 mg/dL (Neg-Trace); RBC/HPF 0-3 HPF (0-3); Specific Gravity, Urine 1.022 (1.002-1.036); Squamous Epithelial 0-3 HPF (0-3); Urobilinogen Normal mg/dL (Less than 2)
[2020-12-14 10:31] LABS: Urine Culture Reflex Yes Yes
[2020-12-14 10:50] LABS: Creatinine, Urine 71.93 mg/dL (63-166)
[2020-12-14] MEDS: methylPREDNISolone Sod Succ 40 MG VIAL IVP SCH ×2 (12:45→17:26)
[2020-12-14] MEDS: Cefepime 1 GM in Sodium Chloride 0.9% 100 ML IVPB SCH (14:20)
[2020-12-14] MEDS: Albuterol Sulfate 2.5 mg/3 ml Neb IPPB SCH (15:26)
[2020-12-14] MEDS ORDERED: Albuterol Sulfate 2.5 mg/3 ml Neb IPPB PRN (15:30)
[2020-12-15] MEDS: methylPREDNISolone Sod Succ 40 MG VIAL IVP SCH ×5 (00:10→23:50)
[2020-12-15] MEDS: Vancomycin HCl 500 MG in Sodium Chloride 0.9% 100 ML IVPB SCH ×2 (03:06→16:02)
[2020-12-15 03:58] LABS: #Lymphocytes 0.4 thou/uL (1.20-3.40); #Monocytes 0.1 thou/uL (0.11-0.59); #Neutrophils 6.3 thou/uL (1.40-6.50); %Basophils 0.2 % (0.0-1.0); %Eosinophils 0.1 % (0.0-10.0); %Lymphocytes 5.7 % (21.0-51.0); %Monocytes 0.8 % (0.0-10.0); %Neutrophils 93.3 % (42.0-75.0); Hemoglobin 12.7 g/dL (14.0-18.0); Mean Corpuscular HGB CONC 33.1 g/dL (32.0-36.0); Mean Corpuscular Hemoglobin 32.2 pg (27.0-31.0); Mean Corpuscular Volume 97.2 fL (78.0-98.0); Mean Platelet Volume 9.2 fL (7.4-10.4); Platelet Count 154 thou/uL (130-400); RBC Distribution Width 14.1 % (11.5-14.5); Red Blood Cell (RBC) Count 3.94 mill/uL (4.70-6.10); White Blood Cell (WBC) Count 6.7 thou/uL (4.8-10.8)
[2020-12-15 04:19] LABS: Anion Gap 15 mmol/L (10-20); BUN (Urea Nitrogen) 55 mg/dL (8.4-25.7); Calc. Creatinine Clearance 30 mL/min (70-130); Calcium 8.3 mg/dL (7.8-10.44); Carbon Dioxide 23 mmol/L (23-31); Chloride 99 mmol/L (98-107); Glucose 125 mg/dL (83-110); Potassium 4.5 mmol/L (3.5-5.1); Sodium 132 mmol/L (136-145)
[2020-12-15] MEDS: Thiamine 100 MG TAB PO SCH (07:52)
[2020-12-15] MEDS: Metoprolol Tartrate 25 MG TAB PO SCH ×2 (07:52→20:30)
[2020-12-15] MEDS: Folic Acid 1 MG TAB PO SCH (07:52)
[2020-12-15] MEDS: Multivit, Therapeutic 1 TAB PO SCH (07:52)
[2020-12-15] MEDS: Cyanocobalamin (Vitamin B-12) 1,000 MCG TAB PO SCH (07:52)
[2020-12-15] MEDS: Saccharomyces boulardii 250 MG CAP PO SCH (07:52)
[2020-12-15] MEDS: Aspirin 81 mg Enteric Coated Tablet PO SCH (07:52)
[2020-12-15] MEDS: Mometasone 100 MCG/Formoterol 5 MCG 120 PUFF INHALER INH SCH ×2 (07:56→18:19)
[2020-12-15] MEDS: Furosemide 40 MG/4 ML VIAL SLOW IVP SCH (12:54)
[2020-12-15] MEDS: Cefepime 1 GM in Sodium Chloride 0.9% 100 ML IVPB SCH (14:10)
[2020-12-15] MEDS: Heparin 5,000 UNITS/ML VIAL SC SCH (21:13)
[2020-12-16] MEDS: Vancomycin HCl 500 MG in Sodium Chloride 0.9% 100 ML IVPB SCH ×2 (03:42→16:23)
[2020-12-16] MEDS: methylPREDNISolone Sod Succ 40 MG VIAL IVP SCH ×4 (05:15→17:30)
[2020-12-16] MEDS: Furosemide 40 MG/4 ML VIAL SLOW IVP SCH ×3 (05:15→14:08)
[2020-12-16 05:36] LABS: Anion Gap 14 mmol/L (10-20); BUN (Urea Nitrogen) 61 mg/dL (8.4-25.7); Calc. Creatinine Clearance 34 mL/min (70-130); Calcium 8.5 mg/dL (7.8-10.44); Carbon Dioxide 25 mmol/L (23-31); Chloride 98 mmol/L (98-107); Glucose 136 mg/dL (83-110); Potassium 3.9 mmol/L (3.5-5.1); Sodium 133 mmol/L (136-145)
[2020-12-16] MEDS: Mometasone 100 MCG/Formoterol 5 MCG 120 PUFF INHALER INH SCH ×2 (07:43→19:37)
[2020-12-16] MEDS: Folic Acid 1 MG TAB PO SCH (09:43)
[2020-12-16] MEDS: Thiamine 100 MG TAB PO SCH (09:44)
[2020-12-16] MEDS: Metoprolol Tartrate 25 MG TAB PO SCH ×2 (09:44→20:52)
[2020-12-16] MEDS: Multivit, Therapeutic 1 TAB PO SCH (09:44)
[2020-12-16] MEDS: Aspirin 81 mg Enteric Coated Tablet PO SCH (09:44)
[2020-12-16] MEDS: Heparin 5,000 UNITS/ML VIAL SC SCH ×2 (09:44→20:52)
[2020-12-16] MEDS: Cyanocobalamin (Vitamin B-12) 1,000 MCG TAB PO SCH (09:44)
[2020-12-16] MEDS: Cefepime 1 GM in Sodium Chloride 0.9% 100 ML IVPB SCH (14:08)
[2020-12-16 15:21] LABS: Vancomycin, Trough 18.5 ug/mL
[2020-12-17] MEDS: methylPREDNISolone Sod Succ 40 MG VIAL IVP SCH ×3 (00:42→12:02)
[2020-12-17] MEDS: Vancomycin HCl 500 MG in Sodium Chloride 0.9% 100 ML IVPB SCH ×3 (03:15→15:35)
[2020-12-17] MEDS: Furosemide 40 MG/4 ML VIAL SLOW IVP SCH ×2 (05:33→14:19)
[2020-12-17] MEDS: Mometasone 100 MCG/Formoterol 5 MCG 120 PUFF INHALER INH SCH ×2 (07:04→18:49)
[2020-12-17] MEDS: Aspirin 81 mg Enteric Coated Tablet PO SCH (08:53)
[2020-12-17] MEDS: Cyanocobalamin (Vitamin B-12) 1,000 MCG TAB PO SCH (08:53)
[2020-12-17] MEDS: Metoprolol Tartrate 25 MG TAB PO SCH ×2 (08:54→21:10)
[2020-12-17] MEDS: Heparin 5,000 UNITS/ML VIAL SC SCH ×2 (08:54→21:10)
[2020-12-17] MEDS: Thiamine 100 MG TAB PO SCH (08:54)
[2020-12-17] MEDS: Multivit, Therapeutic 1 TAB PO SCH (08:54)
[2020-12-17] MEDS: Folic Acid 1 MG TAB PO SCH (08:54)
[2020-12-17] MEDS: Cefepime 1 GM in Sodium Chloride 0.9% 100 ML IVPB SCH (14:19)
[2020-12-18] MEDS: Vancomycin HCl 500 MG in Sodium Chloride 0.9% 100 ML IVPB SCH (03:42)
[2020-12-18 04:07] LABS: Vancomycin, Trough 29.3 ug/mL
[2020-12-18] MEDS: Furosemide 40 MG/4 ML VIAL SLOW IVP SCH (05:51)
[2020-12-18] MEDS: Mometasone 100 MCG/Formoterol 5 MCG 120 PUFF INHALER INH SCH ×2 (06:16→18:58)
[2020-12-18] MEDS: predniSONE 20 MG TAB PO SCH (08:09)
[2020-12-18] MEDS: Aspirin 81 mg Enteric Coated Tablet PO SCH (08:09)
[2020-12-18] MEDS: Multivit, Therapeutic 1 TAB PO SCH (08:10)
[2020-12-18] MEDS: Folic Acid 1 MG TAB PO SCH (08:10)
[2020-12-18] MEDS: Metoprolol Tartrate 25 MG TAB PO SCH ×2 (08:10→20:11)
[2020-12-18] MEDS: Heparin 5,000 UNITS/ML VIAL SC SCH ×2 (08:10→19:49)
[2020-12-18] MEDS: Thiamine 100 MG TAB PO SCH (08:10)
[2020-12-18] MEDS: Cyanocobalamin (Vitamin B-12) 1,000 MCG TAB PO SCH (08:10)
[2020-12-18] MEDS: Cefepime 1 GM in Sodium Chloride 0.9% 100 ML IVPB SCH (14:49)
[2020-12-18] MEDS: Vancomycin HCl 750 MG in Sodium Chloride 0.9% 250 ML 250 ML IVPB SCH (19:48)
[2020-12-19] MEDS: Mometasone 100 MCG/Formoterol 5 MCG 120 PUFF INHALER INH SCH ×2 (06:14→19:10)
[2020-12-19] MEDS ORDERED: Furosemide 40 MG TAB PO SCH (07:30)
[2020-12-19] MEDS: Cyanocobalamin (Vitamin B-12) 1,000 MCG TAB PO SCH (08:37)
[2020-12-19] MEDS: Heparin 5,000 UNITS/ML VIAL SC SCH (08:37)
[2020-12-19] MEDS: Folic Acid 1 MG TAB PO SCH (08:37)
[2020-12-19] MEDS: predniSONE 20 MG TAB PO SCH (08:37)
[2020-12-19] MEDS: Aspirin 81 mg Enteric Coated Tablet PO SCH (08:37)
[2020-12-19] MEDS: Thiamine 100 MG TAB PO SCH (08:38)
[2020-12-19] MEDS: Multivit, Therapeutic 1 TAB PO SCH (08:38)
[2020-12-19] MEDS: Metoprolol Tartrate 25 MG TAB PO SCH ×2 (08:38→20:43)
[2020-12-19] MEDS: Enoxaparin Sodium 40 MG/0.4 ML SYRINGE SC SCH (09:27)
[2020-12-19] MEDS: Furosemide 40 MG/4 ML VIAL SLOW IVP SCH (13:24)
[2020-12-19] MEDS: Vancomycin HCl 750 MG in Sodium Chloride 0.9% 250 ML 250 ML IVPB SCH (20:51)
[2020-12-20] MEDS: Furosemide 40 MG/4 ML VIAL SLOW IVP SCH (05:47)
[2020-12-20] MEDS: Mometasone 100 MCG/Formoterol 5 MCG 120 PUFF INHALER INH SCH (07:32)
[2020-12-20] MEDS: Multivit, Therapeutic 1 TAB PO SCH (08:56)
[2020-12-20] MEDS: Folic Acid 1 MG TAB PO SCH (08:56)
[2020-12-20] MEDS: Thiamine 100 MG TAB PO SCH (08:56)
[2020-12-20] MEDS: Cyanocobalamin (Vitamin B-12) 1,000 MCG TAB PO SCH (08:56)
[2020-12-20] MEDS: predniSONE 20 MG TAB PO SCH (08:56)
[2020-12-20] MEDS: Enoxaparin Sodium 40 MG/0.4 ML SYRINGE SC SCH (08:56)
[2020-12-20] MEDS: Aspirin 81 mg Enteric Coated Tablet PO SCH (08:56)
[2020-12-20] MEDS: Metoprolol Tartrate 25 MG TAB PO SCH (09:00)
[2020-12-20 11:29] VITALS: BP 110/72; TEMP 97.4
== END 2020-12-20 14:04 | DRG 871 ==
LOC: ERS 13:54 → IMCU/EMU 16:52 → 2SE 12-15 15:48
PROVIDERS: ADMIT Internal Medicine; ATTEND Internal Medicine
PROC: 0W993ZZ Drainage of Right Pleural Cavity, Percutaneous Approach (ICD-10-PCS; principal; 2020-12-12)
DX: A41.9 Sepsis, unspecified organism (principal); Z66 Do not resuscitate; E43 Unspecified severe protein-calorie malnutrition; J96.01 Acute respiratory failure with hypoxia; L03.115 Cellulitis of right lower limb; N17.9 Acute kidney failure, unspecified; R64 Cachexia; J44.1 Chronic obstructive pulmonary disease with (acute) exacerbation; E87.1 Hypo-osmolality and hyponatremia; I13.0 Hypertensive heart and chronic kidney disease with heart failure and stage 1 through stage 4 chronic kidney disease, or unspecified chronic kidney disease; Z68.1 Body mass index [BMI] 19.9 or less, adult; L89.222 Pressure ulcer of left hip, stage 2; L89.152 Pressure ulcer of sacral region, stage 2; I48.0 Paroxysmal atrial fibrillation; Z86.73 Personal history of transient ischemic attack (TIA), and cerebral infarction without residual deficits; N18.30 Chronic kidney disease, stage 3 unspecified; N40.0 Benign prostatic hyperplasia without lower urinary tract symptoms; F17.210 Nicotine dependence, cigarettes, uncomplicated; I27.20 Pulmonary hypertension, unspecified; R62.7 Adult failure to thrive; I08.1 Rheumatic disorders of both mitral and tricuspid valves
CPT/HCPCS: 0240U; 36415; 71045; 71250; 76770; 80048; 80053; 80202; 81001; 82150; 82550; 82570; 82945; 83605; 83615; 83690; 83735; 83880; 83986; 84100; 84156; 84157; 84300; 84478; 84484; 85025; 85060; 85610; 85652; 86140; 87040; 87070; 87077; 87086; 87116; 87186; 87205; 87206; 88112; 88305; 89051; 93005; 93010; 93306; 94640; 96365; 96366; 96367; 96375; J0282; J0692; J1160; J1644; J1650; J1940; J2920; J2930; J3370; J3475; J3490; J7050; J7070; J7512; J7620